=== PATIENT | female | born 1990 | race Two or more races ===

== ENCOUNTER 2020-01-02 21:12 | Emergency (ER) | payer MEDICAID, OTHER ==
[~2020-01-02] VITALS: Ht 157.5 cm; Wt 117.9 kg
[2020-01-03 03:22] VITALS: BP 122/79
== END 2020-01-03 04:40 | disposition home or self-care (01) ==
LOC: ER 21:12
DX: U07.1 COVID-19 (principal); J18.9 Pneumonia, unspecified organism
CPT/HCPCS: 36415; 71045; 87426

== ENCOUNTER 2020-08-09 19:36 | Emergency (ER) | payer MEDICAID ==
[~2020-08-09] VITALS: Ht 157.5 cm; Wt 117.9 kg
[2020-08-09 20:50] LABS: Basophils # (auto) 0 10 ^3/uL (0-0.2); Eosinophils # (auto) 0.1 10 ^3/uL (0-0.8); Eosinophils % (auto) 1.7 % (0.0-7.0); Hemoglobin 11.2 g/dL (12.2-16.2); Monocytes # (auto) 0.2 10 ^3/uL (0-1.3)
[2020-08-09 20:52] LABS: Basophils % (auto) 0.7 % (0.0-2.0); Hematocrit 33.7 % (36.0-46.0); Lymphocytes # (auto) 2.6 10 ^3/uL (0.4-5.4); Lymphocytes % (auto) 43.1 % (10.0-50.0); Mean Corpuscular Hgb Conc. 33.3 g/dL (32.0-36.0); Mean Corpuscular Volume 69.2 fL (80.0-100.0); Neutrophils % (auto) 50.5 % (37.0-80.0); Nucleated Red Blood Cells % 0.1 %; Platelet Count (auto) 151 10^3/uL (140-450); Red Blood Cells 4.87 10^6/uL (4.0-5.20); Red Cell Distribution Width 16.5 % (11.8-14.3)
[2020-08-09 21:04] LABS: Albumin 3.2 g/dL (3.4-5.0); BUN/Creatinine Ratio 16.7; Calcium 7.9 mg/dL (8.5-10.1); Potassium 3.6 mmol/L (3.5-5.1)
[2020-08-09 21:07] LABS: Bilirubin, Total 0.2 mg/dL (0.2-1.0); Total Protein 7.7 g/dL (6.4-8.2)
[2020-08-10 03:20] LABS: Urine Bacteria FEW /hpf (None Seen); Urine Blood 1+ /uL (Negative); Urine Mucus FEW (None Seen); Urine Specific Gravity 1.026 (1.001-1.035); Urine WBC 43 /hpf (0 - 5)
[2020-08-10 05:15] VITALS: BP 141/89
== END 2020-08-10 05:21 | disposition home or self-care (01) ==
LOC: ER 19:38
DX: R60.0 Localized edema (principal); M79.605 Pain in left leg; M79.604 Pain in right leg; Z88.2 Allergy status to sulfonamides
CPT/HCPCS: 36415; 71045; 80053; 81001; 81025; 83880; 85025; 93970

== ENCOUNTER 2023-09-26 16:18 | Emergency (ER) | payer MEDICAID, OTHER ==
[~2023-09-26] VITALS: Ht 157.5 cm; Wt 120.8 kg
[2023-09-26] MEDS: KETOROLAC TROMETH 60MG/2ML VIAL IM ONE (16:40)
[2023-09-26] MEDS ORDERED: IBUP-1456 PO (17:29)
[2023-09-26] MEDS ORDERED: METH-1182 PO (17:29)
[2023-09-26 17:56] VITALS: BP 131/77; PULSE 76; RESP 18; TEMP 98.2; O2SAT 96
== END 2023-09-26 17:56 | disposition home or self-care (01) ==
LOC: EEVIPCON 16:18 → ER 16:18
DX: S39.012A Strain of muscle, fascia and tendon of lower back, initial encounter (principal); Z88.2 Allergy status to sulfonamides; Z79.899 Other long term (current) drug therapy; X50.0XXA Overexertion from strenuous movement or load, initial encounter; Y93.89 Activity, other specified; Y92.89 Other specified places as the place of occurrence of the external cause; Y99.0 Civilian activity done for income or pay
CPT/HCPCS: 72100; 96372; 99283; J1885

== ENCOUNTER 2023-10-27 20:11 | Inpatient (IN) | payer MEDICAID, OTHER ==
[~2023-10-27] VITALS: Ht 157.5 cm; Wt 122.3 kg
[~2023-10-27 20:11] MED LIST: IBUP-1456 PO; METH-1182 PO
[2023-10-27 21:55] LABS: Basophils # (auto) 0.1 10 ^3/uL (0-0.2); Basophils % (auto) 1.2 % (0.0-2.0); Eosinophils # (auto) 0.2 10 ^3/uL (0-0.8); Eosinophils % (auto) 2.7 % (0.0-7.0); Hematocrit 31.8 % (36.0-46.0); Hemoglobin 10.1 g/dL (12.2-16.2); Lymphocytes # (auto) 1.9 10 ^3/uL (0.4-5.4); Lymphocytes % (auto) 31.4 % (10.0-50.0); Mean Corpuscular Hemoglobin 20.7 pg (28.0-32.0); Mean Corpuscular Hgb Conc. 31.8 g/dL (32.0-36.0); Mean Corpuscular Volume 65.1 fL (80.0-100.0); Monocytes # (auto) 0.3 10 ^3/uL (0-1.3); Monocytes % (auto) 4.9 % (0.0-12.0); Neutrophils # (auto) 3.6 10 ^3/uL (1.6-8.6); Neutrophils % (auto) 59.8 % (37.0-80.0); Nucleated Red Blood Cells % 0.1 %; Platelet Count (auto) 196 10^3/uL (140-450); Red Blood Cells 4.89 10^6/uL (4.0-5.20); Red Cell Distribution Width 17.2 % (11.8-14.3); White Blood Cell 6.1 10^3/uL (4.4-10.8)
[2023-10-27] MEDS: IPRATROPIUM BROM 0.5 MG/2.5ML INH SOL NEB ONE (22:01)
[2023-10-27] MEDS: ALBUTEROL SULF 2.5 MG/0.5ML(0.5%) NEB SOLN NEB ONE (22:01)
[2023-10-27] MEDS ORDERED: ONDANSETRON HCL 4 MG/2 ML VIAL IV PRN (22:30)
[2023-10-27] MEDS ORDERED: ACETAMINOPHEN 325 MG TAB PO PRN (22:30)
[2023-10-27] MEDS ORDERED: TEMAZEPAM 15 MG CAP PO PRN (22:30)
[2023-10-27] MEDS ORDERED: ALBUTEROL SULF 2.5 MG/0.5ML(0.5%) NEB SOLN NEB PRN (22:30)
[2023-10-27 22:33] LABS: Chloride 105 mmol/L (98-107); Potassium 3.3 mmol/L (3.5-5.1); Sodium 137 mmol/L (136-145)
[2023-10-27 22:34] LABS: Anion Gap 6 (5-15); Carbon Dioxide 26 mmol/L (20-30)
[2023-10-27 22:35] LABS: Calcium 8.9 mg/dL (8.7-10.4)
[2023-10-27 22:39] LABS: BUN/Creatinine Ratio 8.2 (10.0-20.0); Blood Urea Nitrogen 5 mg/dL (9-23); Glucose 96 mg/dL (74-106)
[2023-10-28] VITALS (15 sets, daily range): BP systolic 118–135; BP diastolic 71–84; PULSE 20–90; RESP 16–23; TEMP 97.5–98.4; O2SAT 94–100
[2023-10-28 00:16] LABS: Rapid Influenza A Negative (Negative); Rapid Influenza B Negative (Negative)
[2023-10-28 00:17] LABS: COVID19 ANTIGEN SOFIA FIA NEGATIVE (NEGATIVE)
[2023-10-28] MEDS: methylPREDNISolone SOD SUCC 125 MG/2 ML VL IV ONE (01:32)
[2023-10-28] MEDS: cefTRIAXone 1GM/50ML D5W 50 ML IV ONE ×2 (01:32→12:15)
[2023-10-28] MEDS ORDERED: DOCUSATE SOD 100 MG CAP PO PRN (02:00)
[2023-10-28] MEDS ORDERED: AZITHROMYCIN 500MG/ 250ML 250 ML IV SCH ×2 (02:00→10:00)
[2023-10-28] MEDS ORDERED: IPRATROPIUM BROM 0.5 MG/2.5ML INH SOL NEB SCH (02:00)
[2023-10-28] MEDS ORDERED: HYDROmorphone HCL 2 MG/ML VL/or syr IV PRN (02:00)
[2023-10-28] MEDS ORDERED: ONDANSETRON HCL 4 MG/2 ML VIAL IV PRN (02:00)
[2023-10-28] MEDS ORDERED: HYDROcodone-ACET 5/325MG TAB PO PRN (02:00)
[2023-10-28] MEDS ORDERED: methylPREDNISolone SOD SUCC 125 MG/2 ML VL IV SCH (02:00)
[2023-10-28] MEDS ORDERED: cefTRIAXone 1GM/50ML D5W 50 ML IV SCH ×2 (02:00→09:00)
[2023-10-28] MEDS: AZITHROMYCIN 500MG/ 250ML 250 ML IV ONE ×2 (02:09→12:15)
[2023-10-28] MEDS: POTASSIUM EFFERVESENT TAB 25 MEQ PO ONE (02:16)
[2023-10-28] MEDS: ALBUTEROL SULF 2.5 MG/0.5ML(0.5%) NEB SOLN NEB SCH ×2 (02:23→16:49)
[2023-10-28] MEDS: LACTATED RINGER'S 1,000 ML IV ONE (03:14)
[2023-10-28 04:22] LABS: Alanine Aminotransferase 15 U/L (7-40); Albumin 4.3 g/dL (3.2-4.8); Alkaline Phosphatase 93 U/L (46-116); Anion Gap 7 (5-15); Aspartate Aminotransferase 16 U/L (13-40); BUN/Creatinine Ratio 7.9 (10.0-20.0); Bilirubin, Total 0.3 mg/dL (0.2-1.0); Blood Urea Nitrogen 5 mg/dL (9-23); Calcium 8.8 mg/dL (8.7-10.4); Carbon Dioxide 26 mmol/L (20-30); Chloride 104 mmol/L (98-107); Glucose 152 mg/dL (74-106); Potassium 3.5 mmol/L (3.5-5.1); Sodium 137 mmol/L (136-145); Total Protein 7.8 g/dL (5.7-8.2)
[2023-10-28 04:25] LABS: Basophils # (auto) 0 10 ^3/uL (0-0.2); Eosinophils # (auto) 0.1 10 ^3/uL (0-0.8); Hemoglobin 9.5 g/dL (12.2-16.2); Lymphocytes # (auto) 1.1 10 ^3/uL (0.4-5.4); Monocytes # (auto) 0.2 10 ^3/uL (0-1.3); White Blood Cell 6.4 10^3/uL (4.4-10.8)
[2023-10-28 04:28] LABS: Basophils % (auto) 0.6 % (0.0-2.0); Eosinophils % (auto) 1.2 % (0.0-7.0); Hematocrit 29.3 % (36.0-46.0); Mean Corpuscular Hgb Conc. 32.4 g/dL (32.0-36.0); Mean Corpuscular Volume 64.8 fL (80.0-100.0); Monocytes % (auto) 2.7 % (0.0-12.0); Neutrophils % (auto) 78.5 % (37.0-80.0); Nucleated Red Blood Cells % 0.1 %; Platelet Count (auto) 187 10^3/uL (140-450); Red Blood Cells 4.52 10^6/uL (4.0-5.20); Red Cell Distribution Width 17.2 % (11.8-14.3)
[2023-10-28] MEDS: SODIUM CHLOR 0.9% PF (SALINE LOCK) 10ML VIAL/SYR IV SCH (06:04)
[2023-10-28] MEDS: PANTOPRAZOLE 40 MG/10 ML VIAL INJ IV SCH (09:22)
[2023-10-28] MEDS: ENOXAPARIN SOD 40 MG/0.4 ML SYRINGE SC SCH (09:23)
[2023-10-28] MEDS: methylPREDNISolone SOD SUCC 125 MG/2 ML VL IV SCH (09:23)
[2023-10-28] MEDS ORDERED: methylPREDNISolone SOD SUCC 40 MG/ML VL IV SCH (10:00)
[2023-10-28] MEDS: IPRATROPIUM BROM 0.5 MG/2.5ML INH SOL NEB SCH (16:49)
[2023-10-28] MEDS: ACETAMINOPHEN 325 MG TAB PO PRN (23:29)
[2023-10-29] VITALS (14 sets, daily range): BP systolic 105–132; BP diastolic 63–91; PULSE 68–115; RESP 18–21; TEMP 97.4–98.2; O2SAT 93–100
[2023-10-29 08:08] LABS: Basophils # (auto) 0 10 ^3/uL (0-0.2); Eosinophils # (auto) 0 10 ^3/uL (0-0.8); Eosinophils % (auto) 0.2 % (0.0-7.0); Hematocrit 30.2 % (36.0-46.0); Hemoglobin 9.6 g/dL (12.2-16.2); Lymphocytes # (auto) 1.1 10 ^3/uL (0.4-5.4); Mean Corpuscular Volume 65.4 fL (80.0-100.0); Monocytes # (auto) 0.1 10 ^3/uL (0-1.3); Neutrophils # (auto) 7.9 10 ^3/uL (1.6-8.6); White Blood Cell 9.2 10^3/uL (4.4-10.8)
[2023-10-29 08:10] LABS: Basophils % (auto) 0.1 % (0.0-2.0); Lymphocytes % (auto) 12.4 % (10.0-50.0); Mean Corpuscular Hemoglobin 20.7 pg (28.0-32.0); Mean Corpuscular Hgb Conc. 31.7 g/dL (32.0-36.0); Monocytes % (auto) 1.4 % (0.0-12.0); Neutrophils % (auto) 85.9 % (37.0-80.0); Nucleated Red Blood Cells % 0.1 %; Platelet Count (auto) 217 10^3/uL (140-450); Red Blood Cells 4.63 10^6/uL (4.0-5.20)
[2023-10-29 08:44] LABS: Alanine Aminotransferase 20 U/L (7-40); Alkaline Phosphatase 89 U/L (46-116); Anion Gap 6 (5-15); BUN/Creatinine Ratio 9.6 (10.0-20.0); Blood Urea Nitrogen 5 mg/dL (9-23); Calcium 9.4 mg/dL (8.7-10.4); Carbon Dioxide 26 mmol/L (20-30); Chloride 106 mmol/L (98-107); Glucose 154 mg/dL (74-106); Potassium 3.8 mmol/L (3.5-5.1); Sodium 138 mmol/L (136-145)
[2023-10-29 08:46] LABS: Albumin 4.1 g/dL (3.2-4.8); Aspartate Aminotransferase 19 U/L (13-40); Bilirubin, Total 0.3 mg/dL (0.2-1.0); Total Protein 7.6 g/dL (5.7-8.2)
[2023-10-29] MEDS: AZITHROMYCIN 500MG/ 250ML 250 ML IV SCH (09:02)
[2023-10-29] MEDS: cefTRIAXone 1GM/50ML D5W 50 ML IV SCH (09:03)
[2023-10-29 09:19] LABS: Platelet Estimate Adequate
[2023-10-29 09:20] LABS: Hypochromia Slight
[2023-10-29] MEDS: guaiFENesin-DM 100/10mg/5ml SYR PO PRN (17:40)
[2023-10-30] VITALS (17 sets, daily range): BP systolic 102–142; BP diastolic 54–83; PULSE 70–93; RESP 16–20; TEMP 97.4–98.6; O2SAT 93–100
[2023-10-30 06:29] LABS: Basophils # (auto) 0 10 ^3/uL (0-0.2); Basophils % (auto) 0.1 % (0.0-2.0); Eosinophils # (auto) 0 10 ^3/uL (0-0.8); Hemoglobin 8.9 g/dL (12.2-16.2); Lymphocytes # (auto) 1.1 10 ^3/uL (0.4-5.4); Monocytes # (auto) 0.3 10 ^3/uL (0-1.3); Neutrophils # (auto) 10.6 10 ^3/uL (1.6-8.6); Nucleated Red Blood Cells % 0.1 %
[2023-10-30 06:31] LABS: Alanine Aminotransferase 17 U/L (7-40); Albumin 3.9 g/dL (3.2-4.8); Alkaline Phosphatase 79 U/L (46-116); Anion Gap 6 (5-15); Aspartate Aminotransferase 10 U/L (13-40); BUN/Creatinine Ratio 21.1 (10.0-20.0); Bilirubin, Total 0.2 mg/dL (0.2-1.0); Blood Urea Nitrogen 12 mg/dL (9-23); Calcium 8.9 mg/dL (8.7-10.4); Carbon Dioxide 24 mmol/L (20-30); Chloride 108 mmol/L (98-107); Glucose 127 mg/dL (74-106); Potassium 4.2 mmol/L (3.5-5.1); Sodium 138 mmol/L (136-145); Total Protein 6.6 g/dL (5.7-8.2)
[2023-10-30 06:32] LABS: Hematocrit 27.7 % (36.0-46.0); Lymphocytes % (auto) 9.4 % (10.0-50.0); Mean Corpuscular Hemoglobin 21.2 pg (28.0-32.0); Mean Corpuscular Hgb Conc. 32.3 g/dL (32.0-36.0); Mean Corpuscular Volume 65.7 fL (80.0-100.0); Monocytes % (auto) 2.1 % (0.0-12.0); Neutrophils % (auto) 88.4 % (37.0-80.0); Platelet Count (auto) 225 10^3/uL (140-450); Red Blood Cells 4.21 10^6/uL (4.0-5.20)
[2023-10-31] VITALS (12 sets, daily range): BP systolic 119–130; BP diastolic 75–87; PULSE 55–88; RESP 14–19; TEMP 97.2–98.5; O2SAT 92–100
[2023-10-31 08:18] LABS: Basophils # (auto) 0 10 ^3/uL (0-0.2); Basophils % (auto) 0.1 % (0.0-2.0); Eosinophils # (auto) 0 10 ^3/uL (0-0.8); Hemoglobin 9.7 g/dL (12.2-16.2)
[2023-10-31] MEDS ORDERED: IPRIH IN (08:20)
[2023-10-31] MEDS ORDERED: METH4PAK PO (08:20)
[2023-10-31] MEDS ORDERED: ALBUAER3 IN (08:20)
[2023-10-31] MEDS ORDERED: AZIT500T66 PO (08:20)
[2023-10-31 08:24] LABS: Hematocrit 30.3 % (36.0-46.0); Lymphocytes # (auto) 1.3 10 ^3/uL (0.4-5.4); Lymphocytes % (auto) 15.6 % (10.0-50.0); Mean Corpuscular Hemoglobin 21.2 pg (28.0-32.0); Mean Corpuscular Hgb Conc. 32.1 g/dL (32.0-36.0); Mean Corpuscular Volume 66.1 fL (80.0-100.0); Monocytes # (auto) 0.3 10 ^3/uL (0-1.3); Monocytes % (auto) 3.2 % (0.0-12.0); Neutrophils % (auto) 81.1 % (37.0-80.0); Platelet Count (auto) 216 10^3/uL (140-450); Red Blood Cells 4.59 10^6/uL (4.0-5.20); Red Cell Distribution Width 17.2 % (11.8-14.3); White Blood Cell 8.7 10^3/uL (4.4-10.8)
[2023-10-31 08:33] LABS: Alanine Aminotransferase 17 U/L (7-40); Albumin 3.9 g/dL (3.2-4.8); Alkaline Phosphatase 73 U/L (46-116); Anion Gap 5 (5-15); Aspartate Aminotransferase 8 U/L (13-40); BUN/Creatinine Ratio 17.5 (10.0-20.0); Bilirubin, Total 0.3 mg/dL (0.2-1.0); Blood Urea Nitrogen 10 mg/dL (9-23); Calcium 8.9 mg/dL (8.7-10.4); Carbon Dioxide 28 mmol/L (20-30); Chloride 106 mmol/L (98-107); Glucose 113 mg/dL (74-106); Potassium 4.2 mmol/L (3.5-5.1); Sodium 139 mmol/L (136-145); Total Protein 6.9 g/dL (5.7-8.2)
== END 2023-10-31 16:04 | disposition home or self-care (01) | DRG 137 ==
LOC: ER 20:11 → EEVIPCON 20:11 → WEST WING 10-28 01:48 → OVERFLOW 10-28 01:48 → WEST WING 10-28 06:13 → CENTRAL 10-30 06:00
PROVIDERS: ADMIT Internal Medicine; ATTEND Family Medicine
DX: J15.69 Pneumonia due to other Gram-negative bacteria (principal); J96.01 Acute respiratory failure with hypoxia; E66.01 Morbid (severe) obesity due to excess calories; Z20.822 Contact with and (suspected) exposure to COVID-19; J45.909 Unspecified asthma, uncomplicated; Z68.42 Body mass index [BMI] 45.0-49.9, adult; Z82.49 Family history of ischemic heart disease and other diseases of the circulatory system; Z83.3 Family history of diabetes mellitus; Z79.899 Other long term (current) drug therapy; J15.9 Unspecified bacterial pneumonia
CPT/HCPCS: 36415; 71045; 80048; 80053; 83605; 84484; 85025; 87040; 87426; 87804; 94640; G0378; J2470

== ENCOUNTER 2023-11-11 11:17 | Inpatient (IN) | payer MEDICAID ==
[~2023-11-11] VITALS: Ht 157.5 cm; Wt 123.5 kg
[~2023-11-11 11:17] MED LIST changes: +ALBUAER3 IN; +AZIT500T66 PO; +IPRIH IN; +METH4PAK PO
[2023-11-11] MEDS: IOHEXOL 350 MG/ML 100ML IJ ONE (12:33)
[2023-11-11 13:11] LABS: Basophils # (auto) 0 10 ^3/uL (0-0.2); Eosinophils # (auto) 0 10 ^3/uL (0-0.8); Eosinophils % (auto) 0.6 % (0.0-7.0); Hemoglobin 9.7 g/dL (12.2-16.2); Monocytes # (auto) 0.2 10 ^3/uL (0-1.3); Neutrophils # (auto) 2.8 10 ^3/uL (1.6-8.6); White Blood Cell 4.1 10^3/uL (4.4-10.8)
[2023-11-11 13:17] LABS: Basophils % (auto) 0.8 % (0.0-2.0); Hematocrit 30.2 % (36.0-46.0); Lymphocytes % (auto) 23.9 % (10.0-50.0); Mean Corpuscular Hemoglobin 21.2 pg (28.0-32.0); Mean Corpuscular Volume 66.2 fL (80.0-100.0); Monocytes % (auto) 5.4 % (0.0-12.0); Neutrophils % (auto) 69.3 % (37.0-80.0); Platelet Count (auto) 124 10^3/uL (140-450); Red Blood Cells 4.56 10^6/uL (4.0-5.20); Red Cell Distribution Width 17.5 % (11.8-14.3)
[2023-11-11 13:22] LABS: Chloride 109 mmol/L (98-107); Potassium 3.9 mmol/L (3.5-5.1); Sodium 138 mmol/L (136-145)
[2023-11-11 13:23] LABS: Anion Gap 6 (5-15); Calcium 8.6 mg/dL (8.7-10.4); Carbon Dioxide 23 mmol/L (20-30)
[2023-11-11 13:28] LABS: BUN/Creatinine Ratio 12.5 (10.0-20.0); Blood Urea Nitrogen 7 mg/dL (9-23); Glucose 101 mg/dL (74-106)
[2023-11-11 14:01] LABS: COVID19 ANTIGEN SOFIA FIA NEGATIVE (NEGATIVE); Rapid Influenza A Negative (Negative); Rapid Influenza B Negative (Negative)
[2023-11-11 15:11] LABS: Urine Bacteria FEW /hpf (None Seen); Urine Blood Negative /uL (Negative); Urine Clarity Clear (Clear); Urine Color Yellow (Yellow); Urine Mucus FEW (None Seen); Urine Protein, UAD 1+ (Negative); Urine Urobilinogen 2 mg/dL (Negative); Urine WBC 5 /hpf (0 - 5); Urine pH 8.5 (5.0-9.0)
[2023-11-11 15:19] LABS: Urine Specific Gravity > 1.050 (1.001-1.035)
[2023-11-11 18:33] VITALS: RESP 14; O2SAT 98
[2023-11-11] MEDS ORDERED: IPRATROPIUM BROM 0.5 MG/2.5ML INH SOL NEB PRN (22:00)
[2023-11-11] MEDS ORDERED: ALBUTEROL SULF 2.5 MG/0.5ML(0.5%) NEB SOLN NEB PRN (22:00)
[2023-11-11] MEDS ORDERED: MORPHINE SULFATE INJ 2 MG/ml SYRG IV PRN (22:00)
[2023-11-11] MEDS ORDERED: HYDROcodone-ACET 5/325MG TAB PO PRN (22:00)
[2023-11-11] MEDS ORDERED: NITROGLYCERIN 0.4 MG SL TAB SL PRN (22:00)
[2023-11-11] MEDS ORDERED: DOCUSATE SOD 100 MG CAP PO PRN (22:00)
[2023-11-11] MEDS ORDERED: ONDANSETRON HCL 4 MG/2 ML VIAL IV PRN (22:00)
[2023-11-11] MEDS: ACETAMINOPHEN 325 MG TAB PO PRN (22:30)
[2023-11-11] MEDS: ASCORBIC ACID 500 MG TAB PO SCH (22:30)
[2023-11-11] MEDS: SODIUM CHLOR 0.9% PF (SALINE LOCK) 10ML VIAL/SYR IV SCH (22:30)
[2023-11-11] MEDS: cefTRIAXone 1GM/50ML D5W 50 ML IV ONE (23:08)
[2023-11-12] VITALS (10 sets, daily range): BP systolic 108–128; BP diastolic 60–80; PULSE 60–76; RESP 16–19; TEMP 97.7–98.2; O2SAT 95–99
[2023-11-12 06:03] LABS: Basophils # (auto) 0 10 ^3/uL (0-0.2); Eosinophils # (auto) 0.1 10 ^3/uL (0-0.8); Eosinophils % (auto) 2.3 % (0.0-7.0); Hemoglobin 9.7 g/dL (12.2-16.2); Lymphocytes # (auto) 1.6 10 ^3/uL (0.4-5.4); Monocytes # (auto) 0.3 10 ^3/uL (0-1.3); Nucleated Red Blood Cells % 0.1 %
[2023-11-12 06:07] LABS: Basophils % (auto) 0.9 % (0.0-2.0); Hematocrit 30.7 % (36.0-46.0); Lymphocytes % (auto) 38.9 % (10.0-50.0); Mean Corpuscular Hemoglobin 21.2 pg (28.0-32.0); Mean Corpuscular Hgb Conc. 31.6 g/dL (32.0-36.0); Mean Corpuscular Volume 67.1 fL (80.0-100.0); Monocytes % (auto) 7.8 % (0.0-12.0); Neutrophils % (auto) 50.1 % (37.0-80.0); Platelet Count (auto) 124 10^3/uL (140-450); Red Blood Cells 4.57 10^6/uL (4.0-5.20); Red Cell Distribution Width 18.1 % (11.8-14.3)
[2023-11-12 06:28] LABS: Alanine Aminotransferase 21 U/L (7-40); Alkaline Phosphatase 67 U/L (46-116); Anion Gap 6 (5-15); BUN/Creatinine Ratio 12.5 (10.0-20.0); Blood Urea Nitrogen 6 mg/dL (9-23); Calcium 8.5 mg/dL (8.7-10.4); Carbon Dioxide 23 mmol/L (20-30); Chloride 109 mmol/L (98-107); Glucose 94 mg/dL (74-106); Sodium 138 mmol/L (136-145)
[2023-11-12 06:30] LABS: Albumin 3.8 g/dL (3.2-4.8); Aspartate Aminotransferase 20 U/L (13-40); Bilirubin, Total 0.4 mg/dL (0.2-1.0); Total Protein 6.6 g/dL (5.7-8.2)
[2023-11-12] MEDS ORDERED: ENOXAPARIN SOD 40 MG/0.4 ML SYRINGE SC ONE (08:15)
[2023-11-12] MEDS: MULTIPLE VITAMIN TAB PO SCH (09:50)
[2023-11-12] MEDS: cefTRIAXone 1GM/50ML D5W 50 ML IV SCH (09:50)
[2023-11-12] MEDS: ENOXAPARIN SOD 40 MG/0.4 ML SYRINGE SC ONE (09:51)
[2023-11-12] MEDS ORDERED: ASCO500T11 PO (11:00)
[2023-11-12] MEDS ORDERED: NITR-52 PO (11:00)
[2023-11-12] MEDS ORDERED: MULTTAB99 PO (11:00)
[2023-11-12] MEDS ORDERED: ACET-1882 PO (11:00)
[2023-11-12] MEDS ORDERED: PRED20TA2 PO (11:27)
[2023-11-12] MEDS ORDERED: predniSONE 20 MG TAB PO ONE (11:30)
[2023-11-13] MEDS ORDERED: predniSONE 20 MG TAB PO SCH (10:00)
== END 2023-11-12 13:38 | disposition home or self-care (01) | DRG 140 ==
LOC: ER 11:17 → EEVIPCON 11:17 → TELE 22:00 → TELE-WESTW 23:59
PROVIDERS: ADMIT Internal Medicine Pulmonary Disease; ATTEND Internal Medicine Pulmonary Disease
DX: J44.1 Chronic obstructive pulmonary disease with (acute) exacerbation (principal); J45.901 Unspecified asthma with (acute) exacerbation; N39.0 Urinary tract infection, site not specified; E66.01 Morbid (severe) obesity due to excess calories; Z20.822 Contact with and (suspected) exposure to COVID-19; Z82.49 Family history of ischemic heart disease and other diseases of the circulatory system; Z68.42 Body mass index [BMI] 45.0-49.9, adult; Z88.2 Allergy status to sulfonamides
CPT/HCPCS: 36415; 71275; 80048; 80053; 81001; 84484; 85025; 85379; 87081; 87086; 87426; 87804; 93005; 93970; G0378

== ENCOUNTER → 2023-12-31 | Outpatient (CLI) | payer MEDICAID ==
[~2023-12-31] MED LIST changes: +ACET-1882 PO; +ASCO500T11 PO; -AZIT500T66 PO; -METH4PAK PO; +MULTTAB99 PO; +NITR-52 PO; +PRED20TA2 PO
--- NOTE | 2024-01-06 14:30 | DVHNC2 ---
Procedure - Pulmonary function test interpretation: December 31, 2023 1. No obstructive or restrictive ventilatory defect. 2. No significant bronchodilator response. 3. TLC is within normal limits, 83% of predicted, 4.71 L. 4. Mild reduction in diffusion capacity, not corrected for patient's hemoglobin. ELIZ COLLIER MD Jan 06, 2024 14:30
== END | disposition home or self-care (01) ==
LOC: RT 09:26
PROVIDERS: ATTEND Internal Medicine Pulmonary Disease
DX: J45.909 Unspecified asthma, uncomplicated (principal); R06.00 Dyspnea, unspecified; R05.9 Cough, unspecified; F17.200 Nicotine dependence, unspecified, uncomplicated
CPT/HCPCS: 94060; 94727; 94729

== ENCOUNTER 2024-09-06 22:59 | Emergency (ER) | payer MEDICAID ==
[~2024-09-06] VITALS: Ht 157.5 cm; Wt 102.8 kg
[2024-09-07 00:26] LABS: Hematocrit 33.1 % (36.0-46.0); Hemoglobin 10.5 g/dL (12.2-16.2); Mean Corpuscular Hemoglobin 19.4 pg (28.0-32.0); Mean Corpuscular Volume 61.2 fL (80.0-100.0); Nucleated Red Blood Cells % 0.1 %
[2024-09-07] MEDS: ONDANSETRON ODT 4 MG TAB PO ONE (00:36)
[2024-09-07 00:37] LABS: Alanine Aminotransferase 16 U/L (7-40); Albumin 4.8 g/dL (3.2-4.8); Alkaline Phosphatase 67 U/L (46-116); Anion Gap 10 (5-15); BUN/Creatinine Ratio 14.8 (10.0-20.0); Blood Urea Nitrogen 9 mg/dL (9-23); Calcium 9.0 mg/dL (8.7-10.4); Carbon Dioxide 23 mmol/L (20-31); Chloride 106 mmol/L (98-107); Glucose 99 mg/dL (74-106); Lipase 36 U/L (12-53); Sodium 139 mmol/L (136-145); Total Protein 7.8 g/dL (5.7-8.2)
[2024-09-07 00:38] VITALS: TEMP 98.8
[2024-09-07 00:38] LABS: Bilirubin, Total 0.5 mg/dL (0.2-1.0)
[2024-09-07] MEDS: LIDOCAINE VISCOUS 2% 15ML UD PO ONE (00:41)
[2024-09-07] MEDS: MAALOX PLUS or MAALOX 30 ML PO ONE (00:41)
[2024-09-07 01:06] LABS: Potassium 3.2 mmol/L (3.5-5.1)
[2024-09-07 01:12] LABS: Urine Protein, UAD TRACE (Negative)
--- NOTE | 2024-09-07 02:18 | ED.PDOC ---
History of Present Illness HPI Comments 34-year-old female presents with spouse for chief complaint of abdominal pain, nausea, vomiting, diarrhea, excessive burping, and generalized weakness. Patient endorses on progressively worsening symptoms following initial, unprovoked onset at around 9:20 p.m., this evening. Pain is localized in her epigastric area and is constant, nonradiating, feels like contraction, and is a 7/10 in severity.Significant history for UTIs in status post fallopian tube removal. Pain is worse with vomiting. Attempted to take Pepto-Bismol prior to arrival to on vomiting, immediately, afterwards. Last meal was Mongolian, but patient reports on her other family members, who consumed the same food, on b eing asymptomatic. No recent injuries, known sick contact, travel, or further relevant history endorsed. Patient denies having any bloody vomitus or stools, constipation, urinary symptoms, or further associated symptoms at this time. Chief Complaint: Abdominal Pain Time Seen by MD: 23:50 Reviewed Notes: Nurses Notes, Medications, Allergies Allergies: Coded Allergies: Sulfa Antibiotics (Verified Allergy, Unknown, 08/09/20) Home Meds Active Scripts Potassium Chloride (POTASSIUM CHLORIDE CR) 10 Meq Tb, 1 TAB PO DAILY for 7 Days, #7 TAB 5 Refills Prov:FAVIO SIBLEY MD 09/07/24 Ondansetron Odt 4MG Tab (ZOFRAN PO) 4 Mg Tb, 4 MG PO TIDPRN PRN for 3 Days, #9 TAB ODT TAB-DISSOLVE IN MOUTH, THEN SWALLOW Prov:FAVIO SIBLEY MD 09/07/24 Prednisone (Prednisone) 20 Mg Tab, 40 MG PO DAILY for 5 Days, #10 MG Prov:PREMA RIDDLE 11/12/23 Nitrofurantoin (Nitrofurantoin) 100 Mg Cap, 1 CAP PO BID for 5 Days, #10 CAP Prov:PREMA RIDDLE 11/12/23 Multiple Vitamin (Mvi Tab) 1 Tab Tb, 1 TAB PO DAILY for 30 Days, #30 TAB Prov:PREMA RIDDLE 11/12/23 Ascorbic Acid (VITAMIN C TABLET) 500 Mg Tb, 500 MG PO BID for 30 Days, #60 TAB Prov:PREMA RIDDLE 11/12/23 Acetaminophen (Acetaminophen) 325 Mg Tab, 650 MG PO Q6HP PRN for 10 Days, #80 TAB Prov:PREMA RIDDLE RESIDENT 11/12/23 Ipratropium [place] Hfa (Atrovent Hfa) 17 Mcg Aer, 17 MCG IN Q4HR PRN, #1 AER Prov:KRIS PERALTA MD 10/31/23 Albuterol Sulfate (VENTOLIN MDI) 90 Mcg Ih, 90 MCG IN Q4HR PRN, #1 INH Prov:KRIS PERALTA MD 10/31/23 Methocarbamol (Methocarbamol) 750 Mg Tab, 750 MG PO BID, #20 TAB Prov:OLIVA STANFORD 09/26/23 Ibuprofen (Ibuprofen) 800 Mg Tab, 1 TAB PO TID, #30 TAB Prov:OLIVA STANFORD 09/26/23 Information Source: Patient Mode of Arrival: Ambulatory Severity: Moderate Timing: Hours Duration: Since onset Prehospital treatment: Other (See HPI) Review of Systems: REVIEW OF SYSTEMS: General: No fever, no chills, or fatigue HEENT: No sore throat, no earache, no congestion, no neck pain. Cardiac: No chest pain. No palpitations. Lungs: No shortness of breath, no cough. GI: Abdominal pain, nausea, vomiting, diarrhea, no constipation : No dysuria, frequency, or urgency. No hematuria. Musculoskeletal: No joint pain , no joint swelling, no extremity edema. Skin: No rash, no itching. Neuro: Generalized weakness, no headache, no dizziness Vital Signs Vital Signs Date Time Temp Pulse Resp B/P (MAP) Pulse Ox O2 Delivery O2 Flow Rate FiO2 09/07/24 03:00 80 14 123/75 (91) 100 09/07/24 00:41 Room Air* 0 21 09/07/24 00:38 98.8 98.8 Physical Exam PHYSICAL EXAM: General: Awake, alert and oriented. No acute distress. Skin: Skin in warm, dry and intact. Appropriate color for ethnicity. HEENT: The head is normocephalic and atraumatic. Conjunctivae are clear without exudates or hemorrhage. Sclera is non-icteric. EOM are intact. No signs of nystagmus. Eyelids are normal in appearance without swelling or lesions. Oral mu cosa is pink and moist Neck: The neck is supple with normal range of motion. No JVD. Cardiac: Heart rate and rhythm are normal. No murmurs, gallops, or rubs are auscultated. Respiratory: No signs of respiratory distress. Lung sounds are clear in all lobe s bilaterally without rales, rhonchi, or wheezes. Abdominal: Epigastric abdominal tenderness. Remaining abdomen is soft, non-t rosalinda without distention, guarding or rigidity. Bowel sounds are present and normoactive in all four quadrants. No CVA tenderness. Extremities: Upper and lower extremities are atraumatic in appearance without deformity or edema. Neurological: The patient is awake, alert and oriented to person, place, and time with normal speech. Speech is clear. There is no facial asymmetry. Psychiatric: Appropriate mood and affect. Good judgement and insight. Past Medical History PAST MEDICAL HISTORY: UTI'S Past Medical History (Other): Childhood asthma Pneumonia Morbid obesity Surgical History (Other): Fallopian tube removal [employer] History: Other (Fallopian tube removal) Family History Family History: Family hx of Cancer, Family hx of heart machelle, Family hx of HTN Social History Smoker: Non-Smoker Alcohol: Occasionally Drugs: Denies Drug Use Lives In: Home Was a procedure done? Was a procedure done?: No Differential Dx Considerations may include: Differential diagnoses considered include: Abdominal aortic aneurysm, MA, esophageal rupture, intestinal obstruction, mesenteric ischemia, perforated viscus or solid organ rupture, CHF with hepatomegaly, pneumonia, abscess, appendicitis, biliary disease, diverticulitis, gastritis, gastroenteritis, hepatitis, hernia, inflammatory bowel disease, pancreatitis, peptic ulcer disease, urinary tract infection, ureteral colic, constipation, GERD, irritable syndrome, abdominal wall pain, nonspecific abdominal pain, herpes zoster, nephrolithiasis. [ ]Also ruptured ectopic , ovarian torsion/cyst, tubo- ovarian abscess, PID, endometriosis, mittelschmerz. X-Ray, Labs, Meds, VS Vital Signs Date Time Temp Pulse Resp B/P (MAP) Pulse Ox O2 Delivery O2 Flow Rate FiO2 09/07/24 03:00 80 14 123/75 (91) 100 09/07/24 00:41 Room Air* 0 21 09/07/24 00:38 98.8 92 16 114/66 (82) 95 98.8 09/06/24 23:10 98.2 107 22 108/70 (83) 98 98.2 Lab Test 09/06/24 23:59 09/06/24 23:15 Range/Units White Blood Count 8.3 4.4-10.8 10^3/uL Red Blood Count 5.42 H 4.0-5.20 10^6/uL Hemoglobin 10.5 L 12.2-16.2 g/dL Hematocrit 33.1 L 36.0-46.0 % Mean Corpuscular Volume 61.2 L 80.0-100.0 fL Mean Corpuscular Hemoglobin 19.4 L 28.0-32.0 pg Mean Corpuscular Hemoglobin Concent 31.8 L 32.0-36.0 g/dL Red Cell Distribution Width 18.3 H 11.8-14.3 % Platelet Count 203 140-450 10^3/uL Mean Platelet Volume 9.0 6.9-10.8 fL Neutrophils (%) (Auto) 76.5 37.0-80.0 % Lymphocytes (%) (Auto) 18.2 10.0-50.0 % Monocytes (%) (Auto) 4.6 0.0-12.0 % Eosinophils (%) (Auto) 0.3 0.0-7.0 % Basophils (%) (Auto) 0.4 0.0-2.0 % Neutrophils # (Auto) 6.4 1.6-8.6 10 ^3/uL Lymphocytes # (Auto) 1.5 0.4-5.4 10 ^3/uL Monocytes # (Auto) 0.4 0-1.3 10 ^3/uL Eosinophils # (Auto) 0 0-0.8 10 ^3/uL Basophils # (Auto) 0 0-0.2 10 ^3/uL Nucleated Red Blood Cells 0.1 % Sodium Level 139 136-145 mmol/L Potassium Level 3.2 L 3.5-5.1 mmol/L Chloride Level 106 98-107 mmol/L Carbon Dioxide Level 23 20-31 mmol/L Anion Gap 10 5-15 Blood Urea Nitrogen 9 9-23 mg/dL Creatinine 0.61 0.550-1.02 mg/dL Glomerular Filtration Rate Calc 120 >90 mL/min BUN/Creatinine Ratio 14.8 10.0-20.0 Serum Glucose 99 74-106 mg/dL Lactic Acid Level 1.3 0.4-2.0 mmol/L Calcium Level 9.0 8.7-10.4 mg/dL Total Bilirubin 0.5 0.2-1.0 mg/dL Aspartate Amino Transferase (AST) 21 13-40 U/L Alanine Aminotransferase (ALT) 16 7-40 U/L Alkaline Phosphatase 67 46-116 U/L Total Protein 7.8 5.7-8.2 g/dL Albumin 4.8 3.2-4.8 g/dL Lipase 36 12-53 U/L Urine Color Yellow Yellow Urine Clarity Turbid H Clear Urine pH 6.5 5.0-9.0 Urine Specific [place] 1.026 1.001-1.035 Urine Protein Trace H Negative Urine Ketones Trace Negative Urine Blood Trace H Negative /uL Urine Nitrite Negative Negative Urine Bilirubin Negative Negative Urine Urobilinogen 2 H Negative mg/dL Urine Leukocyte Esterase 3+ Negative /uL Urine RBC 5 0 - 4 /hpf Urine Microscopic WBC 63 H 0-5 /HPF Urine Squamous Epithelial Cells Mod <5 /hpf Urine Renal Epithelial Cells 7 None Seen /hpf Urine Bacteria None seen None Seen /hpf Urine Mucus Few None Seen Urine Glucose Normal Normal mg/dL Urine Test Negative Negative Current Medications Medications (Trade) Dose Ordered Sig/Neli Route Start Time Stop Time Status Last Admin Ondansetron HCl (Zofran Po) 4 mg ONCE ONCE PO 09/07/24 00:00 09/07/24 00:01 DC 09/07/24 00:36 Al Hydrox/Mg Hydrox/Simethicone (Maalox Plus) 30 ml ONCE ONCE PO 09/07/24 00:00 09/07/24 00:01 DC 09/07/24 00:41 Lidocaine HCl (Xylocaine 2% Viscous) 10 ml ONCE ONCE PO 09/07/24 00:00 09/07/24 00:01 DC 09/07/24 00:41 Potassium Bicarbonate (Klor-Con/Ef) 50 meq ONCE ONCE PO 09/07/24 02:00 09/07/24 02:03 DC 09/07/24 02:24 Sodium Chloride 1,000 ml @ 1,000 mls/hr Q1H ONCE IV 09/07/24 02:00 09/07/24 02:59 DC 09/07/24 02:20 Time of 1ST Reevaluation: 00:20 Reevaluation 1ST: Unchanged Patient Education/Counseling: Treatment, Need For Follow Up Family Education/Counseling: Treatment, Need For Follow Up SEPSIS Sepsis Screen Date sepsis recognized/suspect: Sep 06, 2024 Time Sepsis recognized/suspect: 2309 Recent Procedure: No On Antibiotic Therapy: No Respiratory Rate >20: No Heart Rate >90: Yes Temp<36 C (96.8 F) or >38.3 C: No SBP <90 or MAP <65 mmHG: No New Acute Mental Status Change: No Is the patient on CPAP, BIPAP,: No Physician Orders Urine Bacterial Culture (09/07/24 02:01) Vital Signs Date Time Temp Pulse Resp B/P (MAP) Pulse Ox O2 Delivery O2 Flow Rate FiO2 09/07/24 03:00 80 14 123/75 (91) 100 09/07/24 00:41 Room Air* 0 21 09/07/24 00:38 98.8 92 16 114/66 (82) 95 98.8 09/06/24 23:10 98.2 107 22 108/70 (83) 98 98.2 Laboratory Tests Test 09/06/24 23:59 Lactic Acid Level 1.3 mmol/L (0.4-2.0) White Blood Count 8.3 10^3/uL (4.4-10.8) Medications Medications Dose Ordered Sig/Neli Route Start Time Stop Time Status Last Admin Dose Admin Al Hydrox/Mg Hydrox/Simethicone 30 ml ONCE ONCE PO 09/07/24 00:00 09/07/24 00:01 DC 09/07/24 00:41 Lidocaine HCl 10 ml ONCE ONCE PO 09/07/24 00:00 09/07/24 00:01 DC 09/07/24 00:41 Ondansetron HCl 4 mg ONCE ONCE PO 09/07/24 00:00 09/07/24 00:01 DC 09/07/24 00:36 Potassium Bicarbonate 50 meq ONCE ONCE PO 09/07/24 02:00 09/07/24 02:03 DC 09/07/24 02:24 Sodium Chloride 1,000 ml @ 1,000 mls/hr Q1H ONCE IV 09/07/24 02:00 09/07/24 02:59 DC 09/07/24 02:20 Departure 1 Departure Time of Disposition: 02:24 Impression: Primary Impression: Vomiting and diarrhea Additional Impressions: Abdominal pain Hypokalemia Anemia Disposition: 01 HOME / SELF CARE / HOMELESS Condition: Stable Additional Instructions: ED DISCHARGE INSTRUCTIONS Instructions: Please read all instructions provided in this packet carefully. Although you have been discharged from the Emergency Department, this does not mean that you have a "clean bill of health". No definitive diagnosis for your symptoms has been made today. It is possible that you are in the process of developing a serious illness. This is why you must return to the ED without fail if any new or worsening symptoms (especially if your symptoms include chest pain, trouble breathing, abdominal pain, fever, headache, confusion, trouble seeing, or trouble walking) It is also very important that you see a primary care provider (PCP) within the next 3-5 days to follow up. If you are unable to get an appointment, return to the ED for re-evaluation. Abdominal Pain: Care Instructions Overview Abdominal pain has many possible causes. Some aren't serious and get better on their own in a few days. Others need more testing and treatment. If your pain continues or gets worse, you need to be rechecked and may need more tests to find out what is wrong. You may need surgery to correct the problem. Don't ignore new symptoms, such as fever, nausea and vomiting, urination problems, pain that gets worse, and dizziness. These may be signs of a more serious problem. If you are not getting better, you may need more tests or treatment. The doctor has checked you carefully, but problems can develop later. If you notice any problems or new symptoms, get medical treatment right away. Follow-up care is a mello part of your treatment and safety. Be sure to make and go to all appointments, and call your doctor if you are having problems. It's also a good idea to know your test results and keep a list of the medicines you take. How can you care for yourself at home? Rest until you feel better. To prevent dehydration, drink plenty of fluids. Choose water and other clear liquids until you feel better. If you have kidney, heart, or liver disease and have to limit fluids, talk with your doctor before you increase the amount of fluids you drink. When you feel like eating, start with small amounts. Do not have alcohol, caffeine, or spicy, hot, or high-fat foods for a day or two. Avoid anti-inflammatory medicines such as aspirin, ibuprofen (Advil, Motrin), and naproxen (Aleve). These can cause stomach upset. Talk to your doctor if you take daily aspirin for another health problem. When should you call for help? Call 911 anytime you think you may need emergency care. For example, call if: You passed out (lost consciousness). You pass maroon or very bloody stools. You vomit blood or what looks like coffee grounds. You have severe belly pain. Call your doctor now or seek immediate medical care if: Your pain gets worse, especially if it becomes focused in one area of your belly. You have a new or higher fever. Your stools are black and look like tar, or they have streaks of blood. You have unexpected vaginal bleeding. You have symptoms of a urinary tract infection. These may include: Pain when you urinate. Urinating more often than usual. Blood in your urine. You are dizzy or lightheaded, or you feel like you may faint. Watch closely for changes in your health, and be sure to contact your doctor if: You are not getting better as expected. Credits for Abdominal Pain: Care Instructions Current as of: December 13, 2022 Author: Ivan [employer], [email or web address] Staff Clinical Review Board All [employer] education is reviewed by a team that includes physicians, nurses, advanced practitioners, registered dieticians, and other healthcare professionals. Nausea and Vomiting: Care Instructions Overview When you are nauseated, you may feel weak and sweaty and notice a lot of saliva in your mouth. Nausea often leads to vomiting. Most of the time you do not need to worry about nausea and vomiting, but they can be signs of other illnesses. Two common causes of nausea and vomiting are a stomach infection and food pois oning. Nausea and vomiting from a viral stomach infection will usually start to improve within 24 hours. Nausea and vomiting from food poisoning may last from 12 to 48 hours. The doctor has checked you carefully, but problems can develop later. If you not ice any problems or new symptoms, get medical treatment right away. Follow-up care is a mello part of your treatment and safety. Be sure to make and go to all appointments, and call your doctor if you are having problems. It's also a good idea to know your test results and keep a list of the medicines you take. How can you care for yourself at home? To prevent dehydration, drink plenty of fluids. Choose water and other clear liquids until you feel better. If you have kidney, heart, or liver disease and have to limit fluids, talk with your doctor before you increase the amount of fluids you drink. Rest in bed until you feel better. When you are able to eat, try clear soups, mild foods, and liquids until all symptoms are gone for 12 to 48 hours. Other good choices include dry toast, crackers, cooked cereal, and gelatin dessert, such as Jell-O. When should you call for help? Call 911 anytime you think you may need emergency care. For example, call if: You passed out (lost consciousness). Call your doctor now or seek immediate medical care if: You have symptoms of dehydration, such as: Dry eyes and a dry mouth. Passing only a little urine. Feeling thirstier than usual. You have new or worsening belly pain. You have a new or higher fever. You vomit blood or what looks like coffee grounds. Watch closely for changes in your health, and be sure to contact your doctor if: You have ongoing nausea and vomiting. Your vomiting is getting worse. Your vomiting lasts longer than 2 days. You are not getting better as expected. Credits for Nausea and Vomiting: Care Instructions Current as of: December 13, 2022 Author: [employer] Staff Clinical Review Board All [employer] education is reviewed by a team that includes physicians, nurses, advanced practitioners, registered dieticians, and other healthcare professionals. e-Prescriptions Potassium Chloride (POTASSIUM CHLORIDE CR) 10 Meq Tb 1 TAB PO DAILY for 7 Days, #7 TAB 5 Refills Prov: FAVIO SIBLEY MD 09/07/24 Ondansetron Odt 4MG Tab (ZOFRAN PO) 4 Mg Tb 4 MG PO TIDPRN PRN for 3 Days, #9 TAB ODT TAB-DISSOLVE IN MOUTH, THEN SWALLOW Prov: FAVIO SIBLEY MD 09/07/24 Comments 34-year-old female presented with abdominal pain, nausea, vomiting and diarrhea. No peritoneal signs on abdominal exam. No evidence of acute abdomen at this time. patient is well appearing and her symptoms improved during the ED observation. Anemia noted. Potassium replaced in the emergency department. Labs show no leukocytosis or elevation of LFTs. Imaging warranted at this time. Patient is afebrile. Patient is not hypotensive. Low suspicion for acute hepatobiliary disease (including acute cholecystitis, acute pancreatitis, PUD (including perforation), acute infectious process (pneumonia, hepatitis, pyelonephritis), acute appendicitis, vascular catastrophe, bowel obstructions, viscous perforation. Presentation not consistent with other acute, emergent causes of abdominal pain at this time. Extensive evaluation was performed in attempt to identify or rule out: (See differential diagnosis section) The following tests were ordered, and results were reviewed by me and discussed with patient: (See diagnostic results section) The following test were independently interpreted by me: N/A I reviewed and agreed with the following test results read by other providers: N/A I reviewed the following notes from the pt's past medical encounters: January 02, 2020, August 09, 2020, September 26, 2023, October 28, 2023, and November 11, 2023 encounters for cough/headache, pedal edema, low back strain, pneumonia, and respiratory distress, respectively Additional information was gathered from interviewing the following independent historians: N/A Discussion of management or test interpretation with external physician/other qualified health direct support professional caregiver: N/A Addressed [ ]one or more chronic illnesses with severe exacerbation, progression, or side effects of treatment: [ ]an acute or chronic illness that poses a threat to life or bodily function: [ ] Decision regarding hospitalization or escalation of hospital level of care: Risk and benefits of admission for further treatment of patient's condition was considered. Due to patient's current clinical condition, high risk of decline and poor outcome if discharged and need for further inpatient management and monitoring, patient will be admitted to the hospital. Drug therapy requiring intensive monitoring for toxicity: N/A Parenteral controlled substances: N/A Decision regarding elective major surgery with identified patient or procedure risk factors: N/A Decision regarding emergency major surgery: N/A Decision not to resuscitate or to de-escalate care because of poor prognosis: N/A Diagnosis or treatment significantly limited by social determinants of health: N/A Decision regarding hospitalization or escalation of hospital level of care: Risks and benefits of admission for further treatment of patient's condition was considered however due to patient's stable condition patient will be discharged to follow up closely or return to care for worsening of condition or inability to follow up. Critical Care Note Critical Care Time?: No Stability Stability form required: No Heart Score Heart Score: Heart Score Response (Comments) Value History N/A 0 EKG N/A 0 Age N/A 0 Risk Factors N/A 0 Troponin N/A 0 Total 0 I personally scribed for FAVIO SIBLEY MD ([email or web address]) on 09/07/24 at 02:18. Electronically submitted by Eliot Hidalgo ([email or web address]). FAVIO SIBLEY MD Sep 07, 2024 02:18
[2024-09-07] MEDS: SODIUM CHLORIDE 0.9% 1,000 ML IV ONE (02:20)
[2024-09-07] MEDS: POTASSIUM EFFERVESENT TAB 25 MEQ PO ONE (02:24)
[2024-09-07] MEDS ORDERED: ZOFR4T PO (02:26)
[2024-09-07] MEDS ORDERED: POTA-36 PO (02:26)
[2024-09-07 03:00] VITALS: BP 123/75; PULSE 80; RESP 14; O2SAT 100
== END 2024-09-07 03:00 | disposition home or self-care (01) ==
LOC: EEVIPCON 22:59 → ER 22:59
DX: E87.6 Hypokalemia (principal); D64.9 Anemia, unspecified; R10.13 Epigastric pain; R11.2 Nausea with vomiting, unspecified; R19.7 Diarrhea, unspecified; E66.01 Morbid (severe) obesity due to excess calories; Z79.1 Long term (current) use of non-steroidal anti-inflammatories (NSAID); Z79.52 Long term (current) use of systemic steroids; Z79.899 Other long term (current) drug therapy; Z88.2 Allergy status to sulfonamides
CPT/HCPCS: 36415; 80053; 81001; 81025; 83605; 83690; 85025; 87086; 96360; 99284; J7030; Q0162

== ENCOUNTER 2024-09-09 06:09 | Inpatient (IN) | payer MEDICAID ==
[~2024-09-09] VITALS: Ht 157.5 cm; Wt 110.0 kg
[~2024-09-09 06:09] MED LIST changes: +POTA-36 PO; +ZOFR4T PO
--- NOTE | 2024-09-09 06:58 | ED.PDOC ---
GI ASSESSMENT HPI Comments This is a 34 year old female presenting to the ED with chief complaint of nausea and vomiting. Patient reports that she has been experiencing nausea and vomiting since Saturday, being seen in [facility] that day and was given Potassium and Zofran. Patient relays that she was okay up until Saturday where her nausea and vomiting started again with associated epigastric pain, causing her to come back to the ED for treatment. Patient states she has been on Zepbound, but her last dose was on Saturday, skipping this week due to her symptoms. Patient denies any diarrhea, fever, chills, dysuria, chest pain, hematemesis, or flank pain. Chief Complaint: Abdominal Pain Time Seen by MD: 06:55 Reviewed Notes: Nurses Notes, Medications, Allergies Allergies: Coded Allergies: Sulfa Antibiotics (Verified Allergy, Unknown, 08/09/20) Home Meds Active Scripts Potassium Chloride (POTASSIUM CHLORIDE CR) 10 Meq Tb, 1 TAB PO DAILY for 7 Days, #7 TAB 5 Refills Prov:FAVIO SIBLEY MD 09/07/24 Ondansetron Odt 4MG Tab (ZOFRAN PO) 4 Mg Tb, 4 MG PO TIDPRN PRN for 3 Days, #9 TAB ODT TAB-DISSOLVE IN MOUTH, THEN SWALLOW Prov:FAVIO SIBLEY MD 09/07/24 Prednisone (Prednisone) 20 Mg Tab, 40 MG PO DAILY for 5 Days, #10 MG Prov:PREMA RIDDLE 11/12/23 Nitrofurantoin (Nitrofurantoin) 100 Mg Cap, 1 CAP PO BID for 5 Days, #10 CAP Prov:PREMA RIDDLE 11/12/23 Multiple Vitamin (Mvi Tab) 1 Tab Tb, 1 TAB PO DAILY for 30 Days, #30 TAB Prov:PREMA RIDDLE 11/12/23 Ascorbic Acid (VITAMIN C TABLET) 500 Mg Tb, 500 MG PO BID for 30 Days, #60 TAB Prov:PREMA RIDDLE 11/12/23 Acetaminophen (Acetaminophen) 325 Mg Tab, 650 MG PO Q6HP PRN for 10 Days, #80 TAB Prov:PREMA RIDDLE 11/12/23 Ipratropium Dickey Hfa (Atrovent Hfa) 17 Mcg Aer, 17 MCG IN Q4HR PRN, #1 AER Prov:KRIS PERALTA MD 10/31/23 Albuterol Sulfate (VENTOLIN MDShukri) 90 Mcg Ih, 90 MCG IN Q4HR PRN, #1 INH Prov:KRIS PERALTA MD 10/31/23 Methocarbamol (Methocarbamol) 750 Mg Tab, 750 MG PO BID, #20 TAB Prov:OLIVA STANFORD 09/26/23 Ibuprofen (Ibuprofen) 800 Mg Tab, 1 TAB PO TID, #30 TAB Prov:OLIVA STANFORD 09/26/23 Information Source: Patient Mode of Arrival: Ambulatory Timing: Days Duration: Since onset Prehospital treatment: None Quality: Sharp Vomitus: Watery Stool: Normal Severity: Moderate Recent: None Recent Hx of: None Pain Location: Epigastric Modifying Factors: Nothing Associated sign and symptoms: Nausea, Vomiting, Abdominal Pain Past Medical History PAST MEDICAL HISTORY: UTI'S Surgical History: Denies all surgeries [employer] History: Other Family History Family History: Reviewed,noncontributory to illness, Family hx of Cancer, Family hx of heart machelle, Family hx of HTN Social History Smoker: Non-Smoker Alcohol: Occasionally Drugs: Denies Drug Use Lives In: Home Constitutional: denies: chills, diaphoresis, fatigue, fever, malaise, sweats, weakness, others EENTM: denies: blurred vision, double vision, ear bleeding, ear discharge, ear drainage, ear pain, ear ringing, eye pain, eye redness, hearing loss, mouth p ain, mouth swelling, nasal discharge, nose bleeding, nose congestion, nose pain, photophobia, tearing, throat pain, throat swelling, voice changes, others Respiratory: denies: cough, hemoptysis, orthopnea, SOB at rest, shortness of br eath, SOB with excertion, stridor, wheezing, others Cardiovascular: denies: chest pain, dizzy spells, diaphoresis, Dyspnea on exertion, edema, irregular heart beat, left arm pain, lightheadedness, palpitations, PND, syncope, others Gastrointestinal: reports: abdominal pain, nausea, vomiting; denies: abdomen distended, blood streaked bowels, constipated, diarrhea, dysphagia, difficulty swallowing, hematemesis, melena, poor appetite, poor fluid intake, rectal bleeding, rectal pain, others Genitourinary: denies: abnormal vagina bleeding, burning, dyspareunia, dysuria, flank pain, frequency, hematuria, incontinence, pain, , vagina discharge, urgency, others Neurological: denies: dizziness, fainting, headache, left sided numbness, left sided weakness, numbness, paresthesia, pre-existing deficit, right sided numbness, right sided weakness, seizure, speech problems, tingling, tremors, weakness, others Musculoskeletal: denies: back pain, gout, joint pain, joint swelling, muscle pain, muscle stiffness, neck pain, others Integumetry: denies: bruises, change in color, change in hair/nails, dryness, laceration, lesions, lumps, rash, wounds, others Allergic/Immunocompromised: denies: Difficulty Healing, Frequent Infections, Hives, Itching, others Hematologic/Lymphatic: denies: anemia, blood clots, easy bleeding, easy bruising, swollen glands, others Endocrine: denies: excessive hunger, excessive sweating, excessive thirst, excessive urination, flushing, intolerance to cold, intolerance to heat, unexplained weight gain, unexplained weight loss, others Psychiatric: denies: anxiety, bipolar disorder, depression, hopeless, panic disorder, schizophrenia, sleepless, suicidal, others All Other Systems: Reviewed and Negative Physical Exam General Appearance: No Apparent Distress, Normal HEENT: Normal ENT Inspection, Pharynx Normal, TMs Normal Neck: Full Range of Motion, Non-Tender, Normal, Normal Inspection Respiratory: Chest Non-Tender, Lungs Clear, No Accessory Muscle Use, No Respiratory Distress, Normal Breath Sounds Cardiovascular: No Edema, No JVD, No Murmur, No Gallop, Normal Peripheral Pulses, Regular Rate/Rhythm Breast Exam: Deferred Gastrointestinal: No Organomegaly, No Pulsatile Mass, Normal Bowel Sounds, Soft, Tenderness (Epigastric tenderness) Genitalia: Deferred Pelvic: Deferred Rectal: Deferred Extremities: No calf tenderness, Normal capillary refill, Normal inspection, Normal range of motion, Non-tender, No pedal edema Musculoskeletal : Apperance: Normal Neurologic: Alert, information technology internship II-XII nml as Tested, No Motor Deficits, Normal Affect, Normal Mood, No Sensory Deficits Cerebellar Function: Normal Reflexes: Normal Skin: Dry, Normal Color, Warm Lymphatic: No Adenopathy Was a procedure done? Was a procedure done?: No GI differential Dx Differential Diagnosis: Cholecystitis, Gastritis/PUD, Gastroenteritis, Dehydration X-Ray, Labs, Meds, VS Vital Signs Date Time Temp Pulse Resp B/P (MAP) Pulse Ox O2 Delivery O2 Flow Rate FiO2 09/09/24 12:00 70 16 100/56 (71) 97 09/09/24 10:30 71 16 116/65 (82) 96 09/09/24 09:25 88 16 98 Room Air* 0 21 09/09/24 08:30 98.1 88 16 128/72 (90) 98 98.1 09/09/24 06:19 98.1 92 20 123/71 (88) 100 98.1 Lab Test 09/09/24 09:36 09/09/24 06:47 Range/Units Urine Color Yellow Yellow Urine Clarity Turbid H Clear Urine pH 5.5 5.0-9.0 Urine Specific [place] 1.030 1.001-1.035 Urine Protein Trace H Negative Urine Ketones 1+ H Negative Urine Blood Negative Negative /uL Urine Nitrite Negative Negative Urine Bilirubin Negative Negative Urine Urobilinogen Normal Negative mg/dL Urine Leukocyte Esterase 3+ Negative /uL Urine RBC 7 0 - 4 /hpf Urine Microscopic WBC 45 H 0-5 /HPF Urine Squamous Epithelial Cells Mod <5 /hpf Urine Bacteria Few H None Seen /hpf Urine Hyaline Casts Few 0 - 2 /lpf Urine Mucus Few None Seen Urine Glucose Normal Normal mg/dL White Blood Count 6.3 4.4-10.8 10^3/uL Red Blood Count 5.25 H 4.0-5.20 10^6/uL Hemoglobin 10.0 L 12.2-16.2 g/dL Hematocrit 32.6 L 36.0-46.0 % Mean Corpuscular Volume 62.1 L 80.0-100.0 fL Mean Corpuscular Hemoglobin 19.0 L 28.0-32.0 pg Mean Corpuscular Hemoglobin Concent 30.6 L 32.0-36.0 g/dL Red Cell Distribution Width 17.9 H 11.8-14.3 % Platelet Count 177 140-450 10^3/uL Mean Platelet Volume 8.9 6.9-10.8 fL Neutrophils (%) (Auto) 61.0 37.0-80.0 % Lymphocytes (%) (Auto) 33.5 10.0-50.0 % Monocytes (%) (Auto) 4.6 0.0-12.0 % Eosinophils (%) (Auto) 0.7 0.0-7.0 % Basophils (%) (Auto) 0.2 0.0-2.0 % Neutrophils # (Auto) 3.8 1.6-8.6 10 ^3/uL Lymphocytes # (Auto) 2.1 0.4-5.4 10 ^3/uL Monocytes # (Auto) 0.3 0-1.3 10 ^3/uL Eosinophils # (Auto) 0 0-0.8 10 ^3/uL Basophils # (Auto) 0 0-0.2 10 ^3/uL Nucleated Red Blood Cells 0.0 % Sodium Level 139 136-145 mmol/L Potassium Level 3.4 L 3.5-5.1 mmol/L Chloride Level 105 98-107 mmol/L Carbon Dioxide Level 24 20-31 mmol/L Anion Gap 10 5-15 Blood Urea Nitrogen 11 9-23 mg/dL Creatinine 0.69 0.550-1.02 mg/dL Glomerular Filtration Rate Calc 117 >90 mL/min BUN/Creatinine Ratio 15.9 10.0-20.0 Serum Glucose 94 74-106 mg/dL Calcium Level 9.1 8.7-10.4 mg/dL Total Bilirubin 0.4 0.2-1.0 mg/dL Aspartate Amino Transferase (AST) 20 13-40 U/L Alanine Aminotransferase (ALT) 14 7-40 U/L Alkaline Phosphatase 63 46-116 U/L Total Protein 7.7 5.7-8.2 g/dL Albumin 4.6 3.2-4.8 g/dL Lipase 38 12-53 U/L Current Medications Medications (Trade) Dose Ordered Sig/Neli Route Start Time Stop Time Status Last Admin Sodium Chloride 1,000 ml @ 1,000 mls/hr Q1H ONCE IV 09/09/24 06:45 09/09/24 07:44 DC 09/09/24 09:16 Ondansetron HCl (Zofran) 4 mg ONCE ONCE IV 09/09/24 06:45 09/09/24 06:46 DC 09/09/24 09:16 Pantoprazole Sodium (Protonix) 40 mg ONCE ONCE IV 09/09/24 06:45 09/09/24 06:46 DC 09/09/24 09:16 Ketorolac Tromethamine (Toradol Injection) 15 mg ONCE ONCE IV 09/09/24 09:30 09/09/24 09:31 DC 09/09/24 09:28 Time of 1ST Reevaluation: 07:55 Reevaluation 1ST: Unchanged Patient Education/Counseling: Diagnosis, Treatment Family Education/Counseling: No Family Present Additional Information Previous visits reviewed: 09/06/24 for Nausea and Vomiting The following tests were ordered, and results were reviewed by me: CBC, CMP, Lipase, UA Additional Information was gathered from interviewing the following independent historians: N/A I reviewed and agreed with the following test results read by other providers: N/A I discussed treatment and results with medical personnel and: patient Comprehensive systems review obtained and negative except for what is stated in the HPI. SEPSIS Sepsis Screen Date sepsis recognized/suspect: Sep 09, 2024 Time Sepsis recognized/suspect: 613 Recent Procedure: No On Antibiotic Therapy: No Respiratory Rate >20: No Heart Rate >90: Yes Temp<36 C (96.8 F) or >38.3 C: No SBP <90 or MAP <65 mmHG: No New Acute Mental Status Change: No Is the patient on CPAP, BIPAP,: No Physician Orders Gallbladder (09/09/24 11:08) Vital Signs Date Time Temp Pulse Resp B/P (MAP) Pulse Ox O2 Delivery O2 Flow Rate FiO2 09/09/24 12:00 70 16 100/56 (71) 97 09/09/24 10:30 71 16 116/65 (82) 96 09/09/24 09:25 88 16 98 Room Air* 0 21 09/09/24 08:30 98.1 88 16 128/72 (90) 98 98.1 09/09/24 06:19 98.1 92 20 123/71 (88) 100 98.1 Laboratory Tests Test 09/09/24 06:47 White Blood Count 6.3 10^3/uL (4.4-10.8) Medications Medications Dose Ordered Sig/Neli Route Start Time Stop Time Status Last Admin Dose Admin Ketorolac Tromethamine 15 mg ONCE ONCE IV 09/09/24 09:30 09/09/24 09:31 DC 09/09/24 09:28 Ondansetron HCl 4 mg ONCE ONCE IV 09/09/24 06:45 09/09/24 06:46 DC 09/09/24 09:16 Pantoprazole Sodium 40 mg ONCE ONCE IV 09/09/24 06:45 09/09/24 06:46 DC 09/09/24 09:16 Sodium Chloride 1,000 ml @ 1,000 mls/hr Q1H ONCE IV 09/09/24 06:45 09/09/24 07:44 DC 09/09/24 09:16 Departure 1 Departure Time of Disposition: 18:34 (Patient presented with abdominal pain that was concerning for possible appendicits, gastritis, cholecystitis, colitis, gastroenteritis, sbo, or orther possible surgical emergency. Data: 1. I ordered and reviewed the result of at least 3 labs including a CBC, BMP, and Urinalysis. 2. I independently interpreted the following tests: Ultrasound is concerning for cholelithiasis.Risk:This patient has a high risk of morbidity due to further diagnostic testing or treatment and may suffer from an acute abdominal process disorder. Workup reveals cholelithiasis and intractable nausea and vomiting and patient should be admitted for further workup. and possible expert consultation. ) Impression: Primary Impression: Cholelithiasis Qualified Codes: K80.20 - Calculus of gallbladder without cholecystitis without obstruction Additional Impressions: Projectile vomiting with nausea Intractable abdominal pain Disposition: ADMITTED INPATIENT Admit to: Med Surg Condition: Serious Critical Care Note Critical Care Time?: No Stability Stability form required: No Heart Score Heart Score: Heart Score Response (Comments) Value History N/A 0 EKG N/A 0 Age N/A 0 Risk Factors N/A 0 Troponin N/A 0 Total 0 I personally scribed for MARE KOCH MD ([email or web address]) on 09/09/24 at 06:58. Electronically submitted by Fredy Roach ([email or web address]). MARE KOCH MD Sep 09, 2024 06:58
[2024-09-09 07:26] LABS: Hematocrit 32.6 % (36.0-46.0); Hemoglobin 10.0 g/dL (12.2-16.2); Mean Corpuscular Hemoglobin 19.0 pg (28.0-32.0); Mean Corpuscular Volume 62.1 fL (80.0-100.0); Nucleated Red Blood Cells % 0.0 %
[2024-09-09 07:39] LABS: Alanine Aminotransferase 14 U/L (7-40); Albumin 4.6 g/dL (3.2-4.8); Alkaline Phosphatase 63 U/L (46-116); Anion Gap 10 (5-15); BUN/Creatinine Ratio 15.9 (10.0-20.0); Bilirubin, Total 0.4 mg/dL (0.2-1.0); Blood Urea Nitrogen 11 mg/dL (9-23); Calcium 9.1 mg/dL (8.7-10.4); Carbon Dioxide 24 mmol/L (20-31); Chloride 105 mmol/L (98-107); Glucose 94 mg/dL (74-106); Lipase 38 U/L (12-53); Sodium 139 mmol/L (136-145); Total Protein 7.7 g/dL (5.7-8.2)
[2024-09-09 07:42] LABS: Potassium 3.4 mmol/L (3.5-5.1)
[2024-09-09] MEDS: ONDANSETRON HCL 4 MG/2 ML VIAL IV ONE (09:16)
[2024-09-09] MEDS: PANTOPRAZOLE 40 MG/10 ML VIAL INJ IV ONE (09:16)
[2024-09-09] MEDS: SODIUM CHLORIDE 0.9% 1,000 ML IV ONE (09:16)
[2024-09-09 09:25] VITALS: PULSE 88; RESP 16; O2SAT 98
[2024-09-09] MEDS: KETOROLAC TROMETH 30 MG/ML 1ML VIAL IV ONE (09:28)
--- NOTE | 2024-09-09 11:57 | DVH ---
INDICATION: ruq pain TECHNIQUE: Multiple real-time sonographic images were obtained of the right upper quadrant. COMPARISON: None FINDINGS: The liver demonstrates increased echotexture without focal mass lesions. The liver measure s 14.1 cm. There is no intrahepatic or extrahepatic ductal dilatation. The common duct measures 0.4 cm. Cholelithiasis. Gallbladder polyp is present measuring 0.5 cm. The gallbladder wall measures 0.1 cm a nd is within normal limits. The right kidney measures 12.3 cm. The right kidney is normal in contour, size, and shape. The echoge nicity is normal. There is no hydronephrosis. The pancreas is not well visualized due to overlying bowel gas. IMPRESSION: Hepatic steatosis. Cholelithiasis without secondary signs of cholecystitis. Gallbladder polyp is present measuring 0.5 cm. FOLLOW UP RECOMMENDATIONS: Low-risk polyps (pedunculated with a thick or wide stalk, or sessile): < 6 mm: no follow-up 7-9 mm follow-up ultrasound at 12 months 10-14 mm: follow-up ultrasound at 6, 12, 24, and 36 months vs surgical consult > 15 mm: surgical consult Bernie Vásquez, Guido C, Jake J et al. Management of Incidentally Detected Gallbladder Polyps: Society of Radiologists in Ultrasound Consensus Conference Recommendations. Radiology. 2021;:[id number].
[2024-09-09 12:19] LABS: Urine Protein, UAD TRACE (Negative)
--- NOTE | 2024-09-09 12:23 | DVHHP2 ---
History of Present Illness Reason for Visit: Acute abdominal pain History of Present Illness The patient is a 34-year-old female with past medical history of UTIs who presented to [facility] ED with complaint of abdominal pain. Patient reports that she has been experiencing epigastric pain for the past 4 days asso ciated nausea, vomiting, getting worse that prompted this visit. Patient was seen and evaluated in the ED, laboratory data shows WBC 6.3, hemoglobin 10.0, hematocrit 32.6, platelets 177, sodium 139, potassium 3.4, BUN 11, creatinine 0.69, glucose 94, calcium 9.1, lipase 38. Gallbladder ultrasound revealing cholelithiasis without secondary signs of cholecystitis, gallbladder polyps is present measuring 0.5 cm. Please see medication orders section in the computer. On my assessment, patient denied chest pain, no headache, no dizziness, no shortness of breath, no diarrhea, no abdominal pain, nausea or vomiting at this moment, no fever, no chills. Patient was admitted for further evaluation and medical management. Past Medical History UTI'S Past Surgical History Denies all surgeries Family History Reviewed, noncontributory to the management of this case. Past Social History The patient lives at home, denies smoking, alcohol or illicit drugs abuse. Review of Systems Constitutional: No: Fever, Chills, Sweats, Weakness, Malaise, Other Eyes: No: Pain, Vision change, Conjunctivae inflammation, Eyelid inflammation, Other, Redness ENT: No: Ear pain, Ear discharge, Nose pain, Nose discharge, Nose congestion, Mouth pain, Mouth swelling, Throat pain, Throat swelling, Other Respiratory: No: Cough, Dry, Shortness of breath, SOB with excertion, Wheezing, Hemoptysis, Pleuritic Pain, Sputum, Wheezing, Other Cardiovascular: No: Chest Pain, Palpitations, Orthopnea, Paroxysmal Noc. Dyspnea, Edema, Lt Headedness, Other Gastrointestinal: Nausea, Vomiting, Abdominal Pain; No: Diarrhea, Constipation, Melena, Hematochezia, Other Genitourinary: No Dysuria, No Frequency, No Incontinence, No Hematuria, No Retention, No Other Musculoskeletal: No: other, neck pain, shoulder pain, arm pain, back pain, hand pain, leg pain, foot pain Skin: No: Rash, Lesions, Jaundice, Bruising, Other Neurological: No: Weakness, Numbness, Incoordination, Change in speech, Confusion, Seizures, Other Allergies: Coded Allergies: Sulfa Antibiotics (Verified Allergy, Unknown, 08/09/20) Exam Vital Signs Vital Signs Date Time Temp Pulse Resp B/P (MAP) Pulse Ox O2 Delivery O2 Flow Rate FiO2 09/09/24 12:00 70 16 100/56 (71) 97 09/09/24 09:25 Room Air* 0 21 09/09/24 08:30 98.1 98.1 General Appearance: Alert, Oriented X3, Cooperative, No acute distress HEENT: Atraumatic, PERRLA, EOMI, Mucous membr. moist/pink Respiratory: Clear to auscultation, Normal air movement Cardiovascular: Regular rate, Normal S1, Normal S2, No murmurs Abdominal: Normal bowel sounds, Soft, No hepatospenomegaly, No masses, Other (Reports tenderness) Extremities: No clubbing, No cyanosis, No edema, Normal pulses, No tenderness/swelling Skin: No rashes, No breakdown, No significant lesion Neuro: Normal gait, Normal speech, Strength at 5/5 X4 ext, Normal tone, Sensation intact, Cranial nerves 3-12 NL, Reflexes 2+ Psych/Mental Status: Mental status NL, Mood NL Labs/Xrays Labs Test 09/09/24 09:36 09/09/24 06:47 Range/Units Urine Color Yellow Yellow Urine Clarity Turbid H Clear Urine pH 5.5 5.0-9.0 Urine Specific [place] 1.030 1.001-1.035 Urine Protein Trace H Negative Urine Ketones 1+ H Negative Urine Blood Negative Negative /uL Urine Nitrite Negative Negative Urine Bilirubin Negative Negative Urine Urobilinogen Normal Negative mg/dL Urine Leukocyte Esterase 3+ Negative /uL Urine RBC 7 0 - 4 /hpf Urine Microscopic WBC 45 H 0-5 /HPF Urine Squamous Epithelial Cells Mod <5 /hpf Urine Bacteria Few H None Seen /hpf Urine Hyaline Casts Few 0 - 2 /lpf Urine Mucus Few None Seen Urine Glucose Normal Normal mg/dL White Blood Count 6.3 4.4-10.8 10^3/uL Red Blood Count 5.25 H 4.0-5.20 10^6/uL Hemoglobin 10.0 L 12.2-16.2 g/dL Hematocrit 32.6 L 36.0-46.0 % Mean Corpuscular Volume 62.1 L 80.0-100.0 fL Mean Corpuscular Hemoglobin 19.0 L 28.0-32.0 pg Mean Corpuscular Hemoglobin Concent 30.6 L 32.0-36.0 g/dL Red Cell Distribution Width 17.9 H 11.8-14.3 % Platelet Count 177 140-450 10^3/uL Mean Platelet Volume 8.9 6.9-10.8 fL Neutrophils (%) (Auto) 61.0 37.0-80.0 % Lymphocytes (%) (Auto) 33.5 10.0-50.0 % Monocytes (%) (Auto) 4.6 0.0-12.0 % Eosinophils (%) (Auto) 0.7 0.0-7.0 % Basophils (%) (Auto) 0.2 0.0-2.0 % Neutrophils # (Auto) 3.8 1.6-8.6 10 ^3/uL Lymphocytes # (Auto) 2.1 0.4-5.4 10 ^3/uL Monocytes # (Auto) 0.3 0-1.3 10 ^3/uL Eosinophils # (Auto) 0 0-0.8 10 ^3/uL Basophils # (Auto) 0 0-0.2 10 ^3/uL Nucleated Red Blood Cells 0.0 % Sodium Level 139 136-145 mmol/L Potassium Level 3.4 L 3.5-5.1 mmol/L Chloride Level 105 98-107 mmol/L Carbon Dioxide Level 24 20-31 mmol/L Anion Gap 10 5-15 Blood Urea Nitrogen 11 9-23 mg/dL Creatinine 0.69 0.550-1.02 mg/dL Glomerular Filtration Rate Calc 117 >90 mL/min BUN/Creatinine Ratio 15.9 10.0-20.0 Serum Glucose 94 74-106 mg/dL Calcium Level 9.1 8.7-10.4 mg/dL Total Bilirubin 0.4 0.2-1.0 mg/dL Aspartate Amino Transferase (AST) 20 13-40 U/L Alanine Aminotransferase (ALT) 14 7-40 U/L Alkaline Phosphatase 63 46-116 U/L Total Protein 7.7 5.7-8.2 g/dL Albumin 4.6 3.2-4.8 g/dL Lipase 38 12-53 U/L PATIENT: JHOAN RAINEY ACCT: [id number] UNIT: [id number] : 1990 LOC: ER ROOM / BED: / AGE / SEX: 34 / F ADM STATUS: REG ER SERVICE 1108 ORDERING PHYSICIAN: MARE KOCH MD PROCEDURE(s): GBUS - GALLBLADDER REASON: ruq pain ORDER NUMBER(s): [id number], ACCESSION NUMBER(s): [id number] INDICATION: ruq pain TECHNIQUE: Multiple real-time sonographic images were obtained of the right upper quadrant. COMPARISON: None FINDINGS: The liver demonstrates increased echotexture without focal mass lesions. The liver measures 14.1 cm. There is no intrahepatic or extrahepatic ductal dilatation. The common duct measures 0.4 cm. Cholelithiasis. Gallbladder polyp is present measuring 0.5 cm. The gallbladder wall measures 0.1 cm and is within normal limits. The right kidney measures 12.3 cm. The right kidney is normal in contour, size, and shape. The echogenicity is normal. There is no hydronephrosis. The pancreas is not well visualized due to overlying bowel gas. IMPRESSION: Hepatic steatosis. Cholelithiasis without secondary signs of cholecystitis. Gallbladder polyp is present measuring 0.5 cm. FOLLOW UP RECOMMENDATIONS: Low-risk polyps (pedunculated with a thick or wide stalk, or sessile): < 6 mm: no follow-up 7-9 mm follow-up ultrasound at 12 months 10-14 mm: follow-up ultrasound at 6, 12, 24, and 36 months vs surgical consult > 15 mm: surgical consult Bernie Vásquez, Guido Francis, Jake J et al. Management of Incidentally Detected Gallbladder Polyps: Society of Radiologists in Ultrasound Consensus Conference Recommendations. Radiology. 2021;:[id number]. SEPSIS Sepsis Screen Date sepsis recognized/suspect: Sep 09, 2024 Time Sepsis recognized/suspect: 06 Recent Procedure: No On Antibiotic Therapy: No Respiratory Rate >20: No Heart Rate >90: Yes Temp<36 C (96.8 F) or >38.3 C: No SBP <90 or MAP <65 mmHG: No New Acute Mental Status Change: No Is the patient on CPAP, BIPAP,: No Physician Orders Gallbladder (09/09/24 11:08) Vital Signs Date Time Temp Pulse Resp B/P (MAP) Pulse Ox O2 Delivery O2 Flow Rate FiO2 09/09/24 12:00 70 16 100/56 (71) 97 09/09/24 10:30 71 16 116/65 (82) 96 09/09/24 09:25 88 16 98 Room Air* 0 21 09/09/24 08:30 98.1 88 16 128/72 (90) 98 98.1 09/09/24 06:19 98.1 92 20 123/71 (88) 100 98.1 Laboratory Tests Test 09/09/24 06:47 White Blood Count 6.3 10^3/uL (4.4-10.8) Medications Medications Dose Ordered Sig/Neli Route Start Time Stop Time Status Last Admin Dose Admin Ketorolac Tromethamine 15 mg ONCE ONCE IV 09/09/24 09:30 09/09/24 09:31 DC 09/09/24 09:28 15 MG Ondansetron HCl 4 mg ONCE ONCE IV 09/09/24 06:45 09/09/24 06:46 DC 09/09/24 09:16 4 MG Pantoprazole Sodium 40 mg ONCE ONCE IV 09/09/24 06:45 09/09/24 06:46 DC 09/09/24 09:16 40 MG Sodium Chloride 1,000 ml @ 1,000 mls/hr Q1H ONCE IV 09/09/24 06:45 09/09/24 07:44 DC 09/09/24 09:16 1,000 MLS/HR Assessment/Plan Assessment/Plan Acute abdominal pain Cholelithiasis Hypokalemia Intractable nausea and vomiting Plan 1. Admit to med surge unit 2. Breathing treatment 3. Pain control management 4. Management of fluids and electrolytes 5. Consultation for hospitalist 6. Diagnostic tests gallbladder ultrasound 7. DVT prophylaxis-on SCDs 8. Repeat labs CBC, CMP in a.m. 9. Continue with current medical management 10. Treatment plan discussed with patient and RN. Patient verbalized understanding. Plan discussed with: Patient, Other (RN) Problem List: (1) Acute abdominal pain (2) Cholelithiasis (3) Hypokalemia (4) Intractable nausea and vomiting Date of Service: Sep 09, 2024 Billing Provider: CRISTOBAL GASTELUM DNP Common Visit Codes: [id number] INP/OBS CARE (HIGH) CRISTOBAL GASTELUM DNP Sep 09, 2024 12:23
[2024-09-09] MEDS ORDERED: HYDROcodone-ACET 5/325MG TAB PO PRN (12:30)
[2024-09-09] MEDS ORDERED: NITROGLYCERIN 0.4 MG SL TAB SL PRN (12:30)
[2024-09-09] MEDS ORDERED: DOCUSATE SOD 100 MG CAP PO PRN (12:30)
[2024-09-09] MEDS ORDERED: MORPHINE SULFATE INJ 2 MG/ml SYRG IV PRN ×2 (12:30)
[2024-09-09] MEDS: POTASSIUM CHL 20 Meq TABLET PO ONE (13:09)
[2024-09-09] MEDS: SODIUM CHLORIDE 0.9% 1,000 ML IV SCH (13:09)
[2024-09-09 16:26] VITALS: BP 103/61; PULSE 68; RESP 14; RESP 15; TEMP 98.9; O2SAT 99
[2024-09-09 21:00] VITALS: BP 121/81; PULSE 70; RESP 16; TEMP 97.5; O2SAT 99
[2024-09-10] VITALS (7 sets, daily range): BP systolic 99–113; BP diastolic 66–74; PULSE 70–85; RESP 16–20; TEMP 96.9–98.3; O2SAT 96–99
[2024-09-10] MEDS: ACETAMINOPHEN 325 MG TAB PO PRN (00:55)
[2024-09-10] MEDS: LOPERAMIDE HCL 2 MG CAP/TAB PO PRN (00:59)
[2024-09-10 07:13] LABS: Hematocrit 30.2 % (36.0-46.0); Hemoglobin 9.2 g/dL (12.2-16.2); Mean Corpuscular Hemoglobin 18.9 pg (28.0-32.0); Mean Corpuscular Volume 62.4 fL (80.0-100.0); Nucleated Red Blood Cells % 0.1 %
[2024-09-10 07:27] LABS: Alanine Aminotransferase 19 U/L (7-40); Albumin 3.9 g/dL (3.2-4.8); Alkaline Phosphatase 54 U/L (46-116); Anion Gap 9 (5-15); BUN/Creatinine Ratio 15.0 (10.0-20.0); Blood Urea Nitrogen 9 mg/dL (9-23); Calcium 8.9 mg/dL (8.7-10.4); Carbon Dioxide 24 mmol/L (20-31); Glucose 85 mg/dL (74-106); Sodium 142 mmol/L (136-145); Total Protein 6.4 g/dL (5.7-8.2)
[2024-09-10 07:28] LABS: Bilirubin, Total 0.4 mg/dL (0.2-1.0); Chloride 109 mmol/L (98-107); Potassium 3.4 mmol/L (3.5-5.1)
[2024-09-10] MEDS: POTASSIUM EFFERVESENT TAB 25 MEQ PO ONE (10:04)
[2024-09-10] MEDS: PANTOPRAZOLE 40 MG/10 ML VIAL INJ IV SCH (10:04)
--- NOTE | 2024-09-10 12:21 | DVHPNRES ---
Progress Note Date Seen: Sep 10, 2024 Resident Creating Document: NINOSKA QUIROZ Has the PT tested + for MRSA If YES, has PT been informed?: No Medical Necessity Reason Pt with a Central, PICC or Fol: No Subjective Review of Systems The patient is a 34-year-old female with past medical history of UTIs who presented to ED with complaint of abdominal pain. Patient reports that she has been experiencing epigastric pain for the past 4 days associated nausea, vomiting, getting worse that prompted this visit. Patient described the pain as sharp, rated 7-8 out of 10. Patient was seen and evaluated in the ED, laboratory data shows WBC 6.3, hemoglobin 10.0, hematocrit 32.6, platelets 177, sodium 139, potassium 3.4, BUN 11, creatinine 0.69, glucose 94, calcium 9.1, lipase 38. Gallbladder ultrasound revealing cholelithiasis without secondary signs of cholecystitis, gallbladder polyps is present measuring 0.5 cm. The patient is currently taking Zepbound for weight management. On my assessment, patient denied chest pain, no headache, no dizziness, no shortness of breath, no diarrhea, no abdominal pain, nausea or vomiting at this moment, no fever, no chills. Patient was admitted for further evaluation and medical management. Objective vital signs Vital Sign Date Time Temp Pulse Resp B/P (MAP) Pulse Ox O2 Delivery O2 Flow Rate FiO2 09/10/24 05:21 96.9 76 20 108/74 (85) 96 96.9 09/09/24 16:26 Room Air* 0 21 Total Intake and Output 09/09/24 09/09/24 09/10/24 15:00 23:00 07:00 Intake Total 1060 ml 660 ml 890 ml Balance 1060 ml 660 ml 890 ml medications Current Medications Medications Dose Ordered Sig/Neli Route Start Time Stop Time Status Last Admin Dose Admin Pantoprazole Sodium 40 mg DAILY IV 09/10/24 10:00 09/10/24 10:04 40 MG Sodium Chloride 1,000 ml @ 60 mls/hr [id number] IV 09/09/24 12:30 09/10/24 10:11 60 MLS/HR Acetaminophen/ Hydrocodone Bitart 1 tab Q4HP PRN PO 09/09/24 12:30 Ondansetron HCl 4 mg Q4HP PRN IV 09/09/24 12:30 Acetaminophen 650 mg Q6HP PRN PO 09/09/24 12:30 09/10/24 00:55 650 MG Ceftriaxone Sodium 50 ml @ 100 mls/hr DAILY@09 IV 09/11/24 09:00 UNV laboratory and microbiology Laboratory Tests 09/10/24 06:35 Test 09/10/24 06:35 Range/Units Serum Glucose 85 74-106 mg/dL Microbiology Date/Time Source Procedure Growth Status 09/09/24 14:08 Stool Stool Culture - Preliminary Resulted 09/09/24 14:08 Stool Shiga Toxin I & II Pending Resulted Problem List/Assessment/Plan Problem List/Assessment/Plan # Acute abdominal pain likely due to viral gastroenteritis -continue Acetaminophen (Tylenol) 650 MG PO q6hp PRN -continue Hydrocodone-ACET 5/325 MG -continue Pantoprazole 40 MG IV daily -continue IV fluids # Cholelithiasis -Diagnostic tests gallbladder ultrasound -0.5cm gallbladder polyp identified -continue Ceftriaxone IV (Rocephin) IV # Hypokalemia -Potassium 3.4 on admit -Potassium supplement (effervescent tab) 25 MEQ PO # Intractable nausea and vomiting -continue ondansetron IV (Zofran) 4 MG IV q4hp PRN Treatment plan discussed with patient and Dr. Lazaro, Patient verbalized understanding. Plan discussed with: Patient, Dr. Lazaro Plan discussed with: Patient Sepsis reassessment post fluid Respiratory Effort: Non-Labored Respiratory Pattern: Regular Date of Service: Sep 10, 2024 Billing Provider: PHOEBE LAZARO MD Common Visit Codes: [id number] INP/OBS CARE(HIGH) NINOSKA QUIROZ RESIDENT Sep 10, 2024 12:21 SHARON PADILLA RESIDENT Sep 10, 2024 16:54 PHOEBE LAZARO MD Sep 15, 2024 13:39
[2024-09-10] MEDS: cefTRIAXone 1GM/50ML D5W 50 ML IV ONE (12:23)
[2024-09-11 01:00] VITALS: BP 115/74; PULSE 76; RESP 18; TEMP 98; O2SAT 96
[2024-09-11 05:00] VITALS: BP 100/70; PULSE 65; RESP 16; TEMP 97.7; O2SAT 95
--- NOTE | 2024-09-11 06:36 | DVHPNRES ---
Progress Note Date Seen: Sep 11, 2024 Resident Creating Document: NINOSKA QUIROZ Has the PT tested + for MRSA If YES, has PT been informed?: No Medical Necessity Reason Pt with a Central, PICC or Fol: No Subjective Review of Systems The patient is a 34-year-old female with past medical history of UTIs who presented to ED with complaint of abdominal pain. Patient reports that she has been experiencing epigastric pain for the past 4 days associated nausea, vomiting, getting worse that prompted this visit. Patient described the pain as sharp, rated 7-8 out of 10. Patient was seen and evaluated in the ED, laboratory data shows WBC 4.4, hemoglobin 9.2, hematocrit 30.2, platelets 161, sodium 142, potassium 3.4, BUN 9, creatinine 0.60, glucose 85, calcium 8.9. Gallbladder ultrasound revealing cholelithiasis without secondary signs of cholecystitis, gallbladder polyps is present measuring 0.5 cm. The patient is currently taking Zepbound for weight management. On my assessment, patient denied chest pain, no headache, no dizziness, no shortness of breath, no diarrhea, no abdominal pain, nausea or vomiting at this moment, no fever, no chills. Patient was admitted for further evaluation and medical management. Patient reports: No new complaints Objective vital signs Vital Sign Date Time Temp Pulse Resp B/P (MAP) Pulse Ox O2 Delivery O2 Flow Rate FiO2 09/11/24 05:00 97.7 65 16 100/70 (80) 95 97.7 09/10/24 20:00 Room Air* 0 21 Total Intake and Output 09/10/24 09/10/24 09/11/24 15:00 23:00 07:00 Intake Total 590 ml 1090 ml 1520 ml Balance 590 ml 1090 ml 1520 ml medications Current Medications Medications Dose Ordered Sig/Neli Route Start Time Stop Time Status Last Admin Dose Admin Pantoprazole Sodium 40 mg DAILY IV 09/10/24 10:00 09/10/24 10:04 40 MG Sodium Chloride 1,000 ml @ 60 mls/hr [id number] IV 09/09/24 12:30 09/11/24 03:35 60 MLS/HR Acetaminophen/ Hydrocodone Bitart 1 tab Q4HP PRN PO 09/09/24 12:30 Ondansetron HCl 4 mg Q4HP PRN IV 09/09/24 12:30 Acetaminophen 650 mg Q6HP PRN PO 09/09/24 12:30 09/10/24 16:42 650 MG Ceftriaxone Sodium 50 ml @ 100 mls/hr DAILY@09 IV 09/11/24 09:00 laboratory and microbiology Laboratory Tests 09/10/24 06:35 Test 09/10/24 06:35 Range/Units Serum Glucose 85 74-106 mg/dL Microbiology Date/Time Source Procedure Growth Status 09/09/24 14:08 Stool Stool Culture - Preliminary Resulted 09/09/24 14:08 Stool Shiga Toxin I & II - Final Resulted Problem List/Assessment/Plan Problem List/Assessment/Plan # Acute abdominal pain likely due to viral gastroenteritis -continue Acetaminophen (Tylenol) 650 MG PO q6hp PRN -continue Hydrocodone-ACET 5/325 MG -continue Pantoprazole 40 MG IV daily -continue IV fluids # Cholelithiasis -Diagnostic tests gallbladder ultrasound -0.5cm gallbladder polyp identified -continue Ceftriaxone IV (Rocephin) IV # Hypokalemia -Potassium 3.4 on admit -Potassium supplement (effervescent tab) 25 MEQ PO # Intractable nausea and vomiting -continue ondansetron IV (Zofran) 4 MG IV q4hp PRN Treatment plan discussed with patient and Dr. Hammond, Patient verbalized understanding. Plan discussed with: Patient, Dr. Hammond Plan discussed with: Patient, Other (RN) My Orders My Orders Orders - NINOSKA QUIROZ Procedure Category Date Status Time Complete Blood Count LAB 09/11/24 Logged 04:00 Basic Metabolic Panel LAB 09/11/24 Logged 04:00 Sepsis reassessment post fluid Respiratory Effort: Non-Labored Respiratory Pattern: Regular NINOSKA QUIROZ Sep 11, 2024 06:36
[2024-09-11 07:36] LABS: Hematocrit 29.8 % (36.0-46.0); Hemoglobin 9.0 g/dL (12.2-16.2); Mean Corpuscular Hemoglobin 18.8 pg (28.0-32.0); Mean Corpuscular Volume 62.2 fL (80.0-100.0); Nucleated Red Blood Cells % 0.1 %
[2024-09-11 07:44] LABS: Anion Gap 7 (5-15); Calcium 8.7 mg/dL (8.7-10.4); Carbon Dioxide 25 mmol/L (20-31); Potassium 3.6 mmol/L (3.5-5.1); Sodium 141 mmol/L (136-145)
[2024-09-11 07:50] LABS: Glucose 85 mg/dL (74-106)
[2024-09-11 07:51] LABS: BUN/Creatinine Ratio 9.4 (10.0-20.0); Blood Urea Nitrogen < 5 mg/dL (9-23); Chloride 109 mmol/L (98-107)
[2024-09-11] MEDS: cefTRIAXone 1GM/50ML D5W 50 ML IV SCH (08:40)
[2024-09-11 09:00] VITALS: BP 103/67; PULSE 69; RESP 17; TEMP 95.7; O2SAT 96
[2024-09-11] MEDS ORDERED: CEPH250C PO (10:22)
[2024-09-11] MEDS ORDERED: FAMO20TA10 PO (10:22)
[2024-09-11] MEDS ORDERED: ZOFR4T PO (10:22)
[2024-09-11 13:00] VITALS: BP 102/62; PULSE 79; RESP 20; TEMP 96.7; O2SAT 96
--- NOTE | 2024-09-11 15:18 | DVHDSRES ---
Discharge Summary Date of Admission Resident Creating Document: NINOSKA QUIROZ RESIDENT Sep 09, 2024 at 12:19 Date of Discharge: Sep 11, 2024 Admitting Diagnosis Acute abdominal pain Labs/Diagnostic Data: Laboratory Results Test 09/11/24 07:06 09/10/24 06:35 09/09/24 09:36 09/09/24 06:47 White Blood Count 4.0 10^3/uL (4.4-10.8) Red Blood Count 4.79 10^6/uL (4.0-5.20) Hemoglobin 9.0 g/dL (12.2-16.2) Hematocrit 29.8 % (36.0-46.0) Mean Corpuscular Volume 62.2 fL (80.0-100.0) Mean Corpuscular Hemoglobin 18.8 pg (28.0-32.0) Mean Corpuscular Hemoglobin Concent 30.2 g/dL (32.0-36.0) Red Cell Distribution Width 18.2 % (11.8-14.3) Platelet Count 160 10^3/uL (140-450) Mean Platelet Volume 9.0 fL (6.9-10.8) Neutrophils (%) (Auto) 51.6 % (37.0-80.0) Lymphocytes (%) (Auto) 40.4 % (10.0-50.0) Monocytes (%) (Auto) 5.2 % (0.0-12.0) Eosinophils (%) (Auto) 2.3 % (0.0-7.0) Basophils (%) (Auto) 0.5 % (0.0-2.0) Neutrophils # (Auto) 2.1 10 ^3/uL (1.6-8.6) Lymphocytes # (Auto) 1.6 10 ^3/uL (0.4-5.4) Monocytes # (Auto) 0.2 10 ^3/uL (0-1.3) Eosinophils # (Auto) 0.1 10 ^3/uL (0-0.8) Basophils # (Auto) 0 10 ^3/uL (0-0.2) Nucleated Red Blood Cells 0.1 % Sodium Level 141 mmol/L (136-145) Potassium Level 3.6 mmol/L (3.5-5.1) Chloride Level 109 mmol/L (98-107) Carbon Dioxide Level 25 mmol/L (20-31) Anion Gap 7 (5-15) Blood Urea Nitrogen < 5 mg/dL (9-23) Creatinine 0.53 mg/dL (0.550-1.02) Glomerular Filtration Rate Calc 124 mL/min (>90) BUN/Creatinine Ratio 9.4 (10.0-20.0) Serum Glucose 85 mg/dL (74-106) Calcium Level 8.7 mg/dL (8.7-10.4) Total Bilirubin 0.4 mg/dL (0.2-1.0) Aspartate Amino Transferase (AST) 29 U/L (13-40) Alanine Aminotransferase (ALT) 19 U/L (7-40) Alkaline Phosphatase 54 U/L (46-116) Total Protein 6.4 g/dL (5.7-8.2) Albumin 3.9 g/dL (3.2-4.8) Urine Color Yellow (Yellow) Urine Clarity Turbid (Clear) Urine pH 5.5 (5.0-9.0) Urine Specific [place] 1.030 (1.001-1.035) Urine Protein Trace (Negative) Urine Ketones 1+ (Negative) Urine Blood Negative /uL (Negative) Urine Nitrite Negative (Negative) Urine Bilirubin Negative (Negative) Urine Urobilinogen Normal mg/dL (Negative) Urine Leukocyte Esterase 3+ /uL (Negative) Urine RBC 7 /hpf (0 - 4) Urine Microscopic WBC 45 /HPF (0-5) Urine Squamous Epithelial Cells Mod /hpf (<5) Urine Bacteria Few /hpf (None Seen) Urine Hyaline Casts Few /lpf (0 - 2) Urine Mucus Few (None Seen) Urine Glucose Normal mg/dL (Normal) Lipase 38 U/L (12-53) Other Laboratory Tests 09/11/24 07:06 Brief Hx & Hospital Course: The patient is a 34-year-old female with past medical history of UTIs who presented to ED with complaint of abdominal pain. Patient reports that she has been experiencing epigastric pain for the past 4 days associated nausea, vomiting, getting worse that prompted this visit. Patient described the pain as sharp, rated 7-8 out of 10. Patient was seen and evaluated in the ED, laboratory data shows WBC 4.4, hemoglobin 9.2, hematocrit 30.2, platelets 161, sodium 142, potassium 3.4, BUN 9, creatinine 0.60, glucose 85, calcium 8.9. Gallbladder ultrasound revealing cholelithiasis without secondary signs of cholecystitis, gallbladder polyps is present measuring 0.5 cm. The patient is currently taking Zepbound for weight management. On my assessment, patient denied chest pain, no headache, no dizziness, no shortness of breath, no diarrhea, no abdominal pain, nausea or vomiting at this moment, no fever, no chills. Patient was admitted for further evaluation and medical management. Patient reports: No new complaints Condition at Discharge: Stable Final Diagnosis/Problems List Acute abdominal pain likely due to viral gastroenteritis Discharge Disposition: Home SNF Discharge Will this Physician continue t: No (RN) Discharge Instruct/Medications Diet: Regular Activity: No Restrictions, As Tolerated Follow Up/Referral: Follow up with PCP in 2 weeks. Medications: As per EMR Scheduled Ascorbic Acid (Vitamin C Tablet), 500 MG PO BID Cephalexin (Keflex Capsule), 250 MG PO Q6HR Famotidine (Pepcid Tablet), 1 TAB PO BID Methocarbamol (Methocarbamol), 750 MG PO BID Multiple Vitamin (Mvi Tab), 1 TAB PO DAILY Ondansetron Odt 4MG Tab (Zofran Po), 4 MG PO TID Scheduled PRN Albuterol Sulfate (Ventolin Mdi), 90 MCG IN Q4HR PRN Ipratropium [place] Hfa (Atrovent Hfa), 17 MCG IN Q4HR PRN Discontinued Medications Acetaminophen (Acetaminophen), 650 MG PO Q6HP PRN Ibuprofen (Ibuprofen), 1 TAB PO TID Nitrofurantoin (Nitrofurantoin), 1 CAP PO BID Ondansetron Odt 4MG Tab (Zofran Po), 4 MG PO TIDPRN PRN Potassium Chloride (Potassium Chloride Cr), 1 TAB PO DAILY Prednisone (Prednisone), 40 MG PO DAILY Discharge Statement: "Patient was advised to return to the ER or call 911 if any headaches, dizziness, shortness of breath, chest pain, abdominal pain, bleeding, fevers, or worsening of medical condition. Patient was counseled about treatment plan, medications, possible side effects, patientverbalized understanding. All questions were answered to the best of my ability. This discharge took greater then 30 minutes in planning, reviewing documentation, counseling the patient, and discussing with other team members." ASSESSMENT ASSESSMENT Assessment Acute abdominal pain likely due to viral gastroenteritis Date of Service: Sep 11, 2024 Billing Provider: PHOEBE LAZRAO MD Common Visit Codes: [id number]/OBS DISCH DAY >30min NINOSKA QUIROZ RESIDENT Sep 11, 2024 15:18 PHOEBE LAZARO MD Sep 15, 2024 13:40
[2024-09-11] MEDS: ONDANSETRON HCL 4 MG/2 ML VIAL IV PRN (15:42)
[2024-09-11 16:54] VITALS: TEMP 35.9
== END 2024-09-11 17:31 | disposition home or self-care (01) | DRG 249 ==
LOC: EEVIPCON 06:09 → ER 06:09 → OVERFLOW 12:19 → CENTRAL 17:42
PROVIDERS: ADMIT Student in an Organized Health Care Education/Training Program; ATTEND Student in an Organized Health Care Education/Training Program
DX: A08.4 Viral intestinal infection, unspecified (principal); K80.20 Calculus of gallbladder without cholecystitis without obstruction; E87.6 Hypokalemia; Z87.440 Personal history of urinary (tract) infections
CPT/HCPCS: 36415; 76705; 80048; 80053; 81001; 83690; 85025; 87045; 87086; 87427; 87493; 96361; 96374; G0378; J1885; J2405; J2470

== ENCOUNTER 2025-01-18 01:39 | Emergency (ER) | payer MEDICAID ==
[~2025-01-18] VITALS: Ht 157.5 cm; Wt 97.2 kg
[~2025-01-18 01:39] MED LIST changes: -ACET-1882 PO; +CEPH250C PO; -IBUP-1456 PO; -NITR-52 PO; -POTA-36 PO; -PRED20TA2 PO
[2025-01-18] MEDS: IBUPROFEN 800 MG TAB PO ONE (02:05)
--- NOTE | 2025-01-18 02:10 | ED.PDOC ---
History of Present Illness HPI Comments 34-year-old morbidly obese female while at home getting ready for work sudden onset severe lower back pain shooting down to right leg. Denies fever, chills, NV, frequency, vag dc or previous trauma. No fecal or urinary incontinece.Denies trauma. Chief Complaint: Back Pain Time Seen by MD: 01:51 Reviewed Notes: Nurses Notes, Medications, Allergies Allergies: Coded Allergies: Sulfa Antibiotics (Verified Allergy, Unknown, 08/09/20) Home Meds Active Scripts Nitrofurantoin Monohydrate Mac (Macrobid) 100 Mg Cap, 100 MG PO BID for 5 Days, #10 CAP Prov:PALLAVI BILLINGSLEY 01/18/25 Ferrous Sulfate (FERROUS SULFATE) 325 Mg Tb, 1 TAB PO TID, #270 TAB 3 Refills Prov:PALLAVI BILLINGSLEY 01/18/25 Oxycodone W/ Acetaminophen (Percocet 5/325MG) 1 Tab Tb, 1 TAB PO QID, #20 TAB Prov:PALLAVI BILLINGSLEY 01/18/25 Capsaicin (Capsaicin) 0.025 % Cre, 0.025 % EX QID, #60 GM Prov:PALLAVI BILLINGSLEY 01/18/25 Prednisone (Prednisone) 20 Mg Tab, 50 MG PO DAILY for 3 Days, #3 MG Prov:PALLAVI BILLINGSLEY 01/18/25 Ondansetron Odt 4MG Tab (ZOFRAN PO) 4 Mg Tb, 4 MG PO TID for 3 Days, #9 TAB ODT TAB-DISSOLVE IN MOUTH, THEN SWALLOW Prov:SHARON PADILLA RESIDENT 09/11/24 Cephalexin (KEFLEX CAPSULE) 250 Mg Cp, 250 MG PO Q6HR for 5 Days, #20 CAP Prov:SHARON PADILLA RESIDENT 09/11/24 Multiple Vitamin (Mvi Tab) 1 Tab Tb, 1 TAB PO DAILY for 30 Days, #30 TAB Prov:PREMA RIDDLE RESIDENT 11/12/23 Ascorbic Acid (VITAMIN C TABLET) 500 Mg Tb, 500 MG PO BID for 30 Days, #60 TAB Prov:PREMA RIDDLE RESIDENT 11/12/23 Ipratropium [place] Hfa (Atrovent Hfa) 17 Mcg Aer, 17 MCG IN Q4HR PRN, #1 AER Prov:KRIS PERALTA MD 10/31/23 Albuterol Sulfate (VENTOLIN MDI) 90 Mcg Ih, 90 MCG IN Q4HR PRN, #1 INH Prov:KRIS PERALTA MD 10/31/23 Methocarbamol (Methocarbamol) 750 Mg Tab, 750 MG PO BID, #20 TAB Prov:OLIVA STANFORD 09/26/23 Information Source: Patient Mode of Arrival: Ambulatory Severity: Severe Timing: Hours Duration: Hours Prehospital treatment: Pain Meds Medication Refill: For: Pain Past Medical History PAST MEDICAL HISTORY: UTI'S Past Medical History (Other): +lupus Surgical History: Denies all surgeries 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 Family History Family History: Reviewed,noncontributory to illness, Family hx of Cancer, Family hx of heart machelle, Family hx of HTN Social History Smoker: Non-Smoker Alcohol: Occasionally Drugs: Denies Drug Use Lives In: Home Constitutional: denies: chills, diaphoresis, fatigue, fever, malaise, sweats, weakness, others EENTM: denies: blurred vision, double vision, ear bleeding, ear discharge, ear drainage, ear pain, ear ringing, eye pain, eye redness, hearing loss, mouth pain, mouth swelling, nasal discharge, nose bleeding, nose congestion, nose pain, photophobia, tearing, throat pain, throat swelling, voice changes, others Respiratory: denies: cough, hemoptysis, orthopnea, SOB at rest, shortness of breath, SOB with excertion, stridor, wheezing, others Cardiovascular: denies: chest pain, dizzy spells, diaphoresis, Dyspnea on exertion, edema, irregular heart beat, left arm pain, lightheadedness, palpit ations, PND, syncope, others Gastrointestinal: denies: abdomen distended, abdominal pain, blood streaked b owels, constipated, diarrhea, dysphagia, difficulty swallowing, hematemesis, melena, nausea, poor appetite, poor fluid intake, rectal bleeding, rectal pain, vomiting, others Genitourinary: denies: abnormal vagina bleeding, burning, dyspareunia, dysuria, flank pain, frequency, hematuria, incontinence, pain, , vagina discharge, urgency, others Neurological: denies: dizziness, fainting, headache, left sided numbness, left sided weakness, numbness, paresthesia, pre-existing deficit, right sided numbness, right sided weakness, seizure, speech problems, tingling, tremors, weakness, others Musculoskeletal: reports: back pain, muscle pain, muscle stiffness; denies: gout, joint pain, joint swelling, neck pain, others Integumetry: denies: bruises, change in color, change in hair/nails, dryness, laceration, lesions, lumps, rash, wounds, others Allergic/Immunocompromised: denies: Difficulty Healing, Frequent Infections, Hives, Itching, others Hematologic/Lymphatic: denies: anemia, blood clots, easy bleeding, easy bruising, swollen glands, others Endocrine: denies: excessive hunger, excessive sweating, excessive thirst, excessive urination, flushing, intolerance to cold, intolerance to heat, unexplained weight gain, unexplained weight loss, others Psychiatric: denies: anxiety, bipolar disorder, depression, hopeless, panic disorder, schizophrenia, sleepless, suicidal, others All Other Systems: Reviewed and Negative Physical Exam General Appearance: Obese, Severe Distress HEENT: NOT DONE Neck: Normal Inspection Respiratory: No Respiratory Distress Cardiovascular: Regular Rate/Rhythm Breast Exam: Deferred Gastrointestinal: Non Tender Genitalia: Deferred Pelvic: Normal External Exam Rectal: Deferred Extremities: Normal range of motion Musculoskeletal : Extremity Location: Back (severe tenderness lumbar shooting down to right posterior leg +right straight leg test) Neurologic: Abnormal Gait, Alert, No Sensory Deficits, R/L Numbness Cerebellar Function: NOT DONE Reflexes: Normal Skin: Normal Color Lymphatic: NOT DONE Was a procedure done? Was a procedure done?: No Differential Dx Considerations may include: sciatica vs lumbar muscoskeletal strain vs uti X-Ray, Labs, Meds, VS Vital Signs Date Time Temp Pulse Resp B/P (MAP) Pulse Ox O2 Delivery O2 Flow Rate FiO2 01/18/25 03:34 98.1 76 18 108/77 (87) 99 98.1 01/18/25 03:29 76 18 108/77 01/18/25 03:02 73 20 113/71 01/18/25 02:05 91 18 100 Room Air 01/18/25 01:40 97.9 91 18 104/83 100 97.9 Lab Test 01/18/25 04:03 01/18/25 02:37 11/24/25 02:07 Range/Units Urine RBC 8 0 - 4 /hpf Urine Microscopic WBC 50 H 0-5 /HPF Urine Squamous Epithelial Cells Mod <5 /hpf Urine Bacteria Few H None Seen /hpf Urine Mucus Few None Seen Amylase Level 31 30-118 U/L Lipase 39 12-53 U/L Hepatitis A Antibody Total Pending Hepatitis B Surface Antigen Pending Hepatitis B Surface Antibody Pending Hepatitis B Core Total Antibody Pending Hepatitis C Antibody Pending White Blood Count 6.3 4.4-10.8 10^3/uL Red Blood Count 4.79 4.0-5.20 10^6/uL Hemoglobin 9.1 L 12.2-16.2 g/dL Hematocrit 29.7 L 36.0-46.0 % Mean Corpuscular Volume 62.0 L 80.0-100.0 fL Mean Corpuscular Hemoglobin 18.9 L 28.0-32.0 pg Mean Corpuscular Hemoglobin Concent 30.5 L 32.0-36.0 g/dL Red Cell Distribution Width 18.5 H 11.8-14.3 % Platelet Count 202 140-450 10^3/uL Mean Platelet Volume 8.8 6.9-10.8 fL Neutrophils (%) (Auto) 61.5 37.0-80.0 % Lymphocytes (%) (Auto) 33.4 10.0-50.0 % Monocytes (%) (Auto) 4.0 0.0-12.0 % Eosinophils (%) (Auto) 0.7 0.0-7.0 % Basophils (%) (Auto) 0.4 0.0-2.0 % Neutrophils # (Auto) 3.9 1.6-8.6 10 ^3/uL Lymphocytes # (Auto) 2.1 0.4-5.4 10 ^3/uL Monocytes # (Auto) 0.3 0-1.3 10 ^3/uL Eosinophils # (Auto) 0 0-0.8 10 ^3/uL Basophils # (Auto) 0 0-0.2 10 ^3/uL Nucleated Red Blood Cells 0.1 % Erythrocyte Sedimentation Rate 16 0-20 mm/hr Sodium Level 139 136-145 mmol/L Potassium Level 3.9 3.5-5.1 mmol/L Chloride Level 103 98-107 mmol/L Carbon Dioxide Level 25 20-31 mmol/L Anion Gap 11 5-15 Blood Urea Nitrogen 12 9-23 mg/dL Creatinine 0.65 0.550-1.02 mg/dL Glomerular Filtration Rate Calc 118 >90 mL/min BUN/Creatinine Ratio 18.5 10.0-20.0 Serum Glucose 99 74-106 mg/dL Calcium Level 9.2 8.7-10.4 mg/dL C-Reactive Protein High Sensitivity 0.13 <1.0 mg/dL Current Medications Medications (Trade) Dose Ordered Sig/Neli Route Start Time Stop Time Status Last Admin Oxycodone HCl (OxyCONTIN ER Tablet) 10 mg ONCE ONCE PO 01/18/25 02:00 01/18/25 02:01 DC 01/18/25 02:04 Ibuprofen (Motrin Tablet) 800 mg ONCE ONCE PO 01/18/25 02:00 01/18/25 02:01 DC 01/18/25 02:05 Prednisone 60 mg ONCE ONCE PO 01/18/25 02:15 01/18/25 02:16 DC 01/18/25 02:24 Hydromorphone HCl (Dilaudid Injection) 1 mg ONCE ONCE IM 01/18/25 02:45 01/18/25 02:46 DC 01/18/25 03:02 [place] [id number] Ph: [phone] DIAGNOSTIC IMAGING Diagnostic Imaging Report : [id number] Signed PATIENT: JHOAN RAINEY ACCT: [id number] UNIT: [id number] : 1990 LOC: ER ROOM / BED: / AGE / SEX: 34 / F ADM STATUS: REG ER SERVICE [id number] ORDERING PHYSICIAN: PALLAVI BILLINGSLEY PROCEDURE(s): LUMB2 - LUMBAR SPINE 3 VIEW REASON: sudden onset severe low back pain shooting down to right leg ORDER NUMBER(s): [id number], ACCESSION NUMBER(s): [id number] EXAM: XY LUMBAR SPINE 3 VIEW CLINICAL INDICATION: sudden onset severe low back pain shooting down to right leg TECHNIQUE: XY LUMBAR SPINE 3 VIEW Comparison: XY LUMBAR SPINE 3 VIEW on DOS: 09/26/23 FINDINGS/IMPRESSION: There is no evidence of acute fracture or dislocation. Mild intervertebral disc space narrowing and endplate changes at T10-T11. Time of 1ST Reevaluation: 02:38 Reevaluation 1ST: Unchanged Patient Education/Counseling: Diagnosis, Treatment Family Education/Counseling: No Family Present SEPSIS Sepsis Screen Date sepsis recognized/suspect: Jan 18, 2025 Time Sepsis recognized/suspect: 0140 Recent Procedure: No On Antibiotic Therapy: No Respiratory Rate >20: No Heart Rate >90: Yes Temp<36 C (96.8 F) or >38.3 C: No SBP <90 or MAP <65 mmHG: No New Acute Mental Status Change: No Is the patient on CPAP, BIPAP,: No Physician Orders Lumbar Spine 3 View (01/18/25 01:55) Comprehensive Hepatitis Panel (01/18/25 02:37) Vital Signs Date Time Temp Pulse Resp B/P (MAP) Pulse Ox O2 Delivery O2 Flow Rate FiO2 01/18/25 03:34 98.1 76 18 108/77 (87) 99 98.1 01/18/25 03:29 76 18 108/77 01/18/25 03:02 73 20 113/71 01/18/25 02:05 91 18 100 Room Air 01/18/25 01:40 97.9 91 18 104/83 100 97.9 Laboratory Tests Test 01/18/25 02:07 White Blood Count 6.3 10^3/uL (4.4-10.8) Medications Medications Dose Ordered Sig/Neli Route Start Time Stop Time Status Last Admin Dose Admin Hydromorphone HCl 1 mg ONCE ONCE IM 01/18/25 02:45 01/18/25 02:46 DC 01/18/25 03:02 Ibuprofen 800 mg ONCE ONCE PO 01/18/25 02:00 01/18/25 02:01 DC 01/18/25 02:05 Oxycodone HCl 10 mg ONCE ONCE PO 01/18/25 02:00 01/18/25 02:01 DC 01/18/25 02:04 Prednisone 60 mg ONCE ONCE PO 01/18/25 02:15 01/18/25 02:16 DC 01/18/25 02:24 Departure 1 Departure Time of Disposition: 04:43 Impression: Primary Impression: Sciatica Additional Impressions: Iron deficiency anemia UTI (urinary tract infection) Morbidly obese Disposition: 01 HOME / SELF CARE / HOMELESS Condition: Stable e-Prescriptions Nitrofurantoin Monohydrate Mac (Macrobid) 100 Mg Cap 100 MG PO BID for 5 Days, #10 CAP Prov: PALLAVI BILLINGSLEY 01/18/25 Ferrous Sulfate (FERROUS SULFATE) 325 Mg Tb 1 TAB PO TID, #270 TAB 3 Refills Prov: PALLAVI BILLINGSLEY 01/18/25 Oxycodone W/ Acetaminophen (Percocet 5/325MG) 1 Tab Tb 1 TAB PO QID, #20 TAB Prov: PALLAVI BILLINGSLEY 01/18/25 Capsaicin (Capsaicin) 0.025 % Cre 0.025 % EX QID, #60 GM Prov: PALLAVI BILLINGSLEY 01/18/25 Prednisone (Prednisone) 20 Mg Tab 50 MG PO DAILY for 3 Days, #3 MG Prov: PALLAVI BILLINGSLEY 01/18/25 Discharged With: Self Critical Care Note Critical Care Time?: No Stability Stability form required: No Heart Score Heart Score: Heart Score Response (Comments) Value History N/A 0 EKG N/A 0 Age N/A 0 Risk Factors N/A 0 Troponin N/A 0 Total 0 I personally scribed for ER ([email or web address]) on 01/18/25 at 02:13. Electronically submitted by Sol Bui ([employer] I personally scribed for ER ([email or web address]) on 01/18/25 at 03:58. Electronically submitted by Sol Bui ([employer] I personally scribed for ER (EMERGENCY) on 01/18/25 at 04:39. Electronically submitted by Sol Bui ([employer] I personally scribed for ER (EMERGENCY) on 01/18/25 at 04:43. Electronically submitted by Sol Bui ([employer] I personally scribed for ER (EMERGENCY) on 01/18/25 at 04:46. Electronically submitted by Sol Bui ([employer] PALLAVI BILLINGSLEY Jan 18, 2025 02:10 ER Jan 18, 2025 02:13
[2025-01-18] MEDS: predniSONE 20 MG TAB PO ONE (02:24)
[2025-01-18 02:31] LABS: Mean Corpuscular Volume 62.0 fL (80.0-100.0)
[2025-01-18 02:32] LABS: Hematocrit 29.7 % (36.0-46.0); Hemoglobin 9.1 g/dL (12.2-16.2); Mean Corpuscular Hemoglobin 18.9 pg (28.0-32.0); Nucleated Red Blood Cells % 0.1 %
[2025-01-18] MEDS: HYDROmorphone HCL 2 MG/ML VL/or syr IM ONE (03:02)
[2025-01-18 03:15] LABS: Chloride 103 mmol/L (98-107); Potassium 3.9 mmol/L (3.5-5.1); Sodium 139 mmol/L (136-145)
[2025-01-18 03:16] LABS: Anion Gap 11 (5-15); Calcium 9.2 mg/dL (8.7-10.4); Carbon Dioxide 25 mmol/L (20-31)
[2025-01-18 03:21] LABS: BUN/Creatinine Ratio 18.5 (10.0-20.0); Blood Urea Nitrogen 12 mg/dL (9-23); Glucose 99 mg/dL (74-106)
[2025-01-18 03:34] VITALS: BP 108/77; PULSE 76; RESP 18; TEMP 98.1; O2SAT 99
--- NOTE | 2025-01-18 03:41 | DVH ---
EXAM: XY LUMBAR SPINE 3 VIEW CLINICAL INDICATION: sudden onset severe low back pain shooting down to right leg TECHNIQUE: XY LUMBAR SPINE 3 VIEW Comparison: XY LUMBAR SPINE 3 VIEW on DOS: 09/26/23 FINDINGS/IMPRESSION: There is no evidence of acute fracture or dislocation. Mild intervertebral disc space narrowing and endplate changes at T10-T11.
[2025-01-18 03:48] LABS: Lipase 39 U/L (12-53)
[2025-01-18 03:50] LABS: Amylase 31 U/L (30-118)
[2025-01-18] MEDS ORDERED: PRED20TA2 PO (04:38)
[2025-01-18] MEDS ORDERED: PERCOT PO (04:41)
[2025-01-18] MEDS ORDERED: CAPS0.0210 EX (04:41)
[2025-01-18] MEDS ORDERED: FER325T PO (04:45)
[2025-01-18] MEDS ORDERED: NITR-87 PO (04:46)
[2025-01-18 11:16] LABS: Hepatitis A Total Antibody Positive (Negative); Hepatitis B Surface Antigen Negative (Negative); Hepatitis C Antibody Negative (Negative)
[2025-01-19] MEDS ORDERED: CHOL100029 PO (02:07)
[2025-01-19] MEDS ORDERED: FAMO20TA10 PO (02:07)
[2025-01-19] MEDS ORDERED: TIRZ5INJ2 SC (02:07)
== END 2025-01-18 05:03 | disposition home or self-care (01) ==
LOC: EEVIPCON 01:39 → ER 01:39
DX: M54.40 Lumbago with sciatica, unspecified side (principal); D50.9 Iron deficiency anemia, unspecified; N39.0 Urinary tract infection, site not specified; Z87.440 Personal history of urinary (tract) infections; Z88.2 Allergy status to sulfonamides; Z79.899 Other long term (current) drug therapy
CPT/HCPCS: 36415; 72100; 80048; 81015; 82150; 83690; 85025; 85652; 86141; 86704; 86706; 86708; 86803; 87340; 96372; 99284; J1171; J7512

== ENCOUNTER 2025-01-18 17:04 | Inpatient (IN) | payer MEDICAID ==
[~2025-01-18] VITALS: Ht 162.6 cm; Wt 97.0 kg
[~2025-01-18 17:04] MED LIST changes: +CAPS0.0210 EX; +FER325T PO; +NITR-87 PO; +PERCOT PO; +PRED20TA2 PO
--- NOTE | 2025-01-18 20:00 | ED.PDOC ---
History of Present Illness HPI Comments 34-year-old, obese female presents with spouse for chief complaint of bilateral lower back and leg pain. Patient endorses on sudden, unprovoked, and atraumatic onset of pain, yesterday. Pain started out as a pinching sensation behind both of her knees and, now, starts in her lower back and radiates downward to both legs. She denies any recent falls or injuries. Patient was evaluated for symptoms at this ED and given oxycodone and prednisone shot, this morning, with no relief. Significant history for anemia and asthma. No endorsement of any current weakness, numbness, tingling, swelling, skin discoloration, shortness of breath, chest pain, or further acute symptoms at this time. Chief Complaint: Lower Extremity Time Seen by MD: 19:50 Reviewed Notes: Nurses Notes, Magneto Electrician Notes, Medications, Allergies Allergies: Coded Allergies: Sulfa Antibiotics (Verified Allergy, Unknown, 08/09/20) Home Meds Active Scripts Nitrofurantoin Monohydrate Mac (Macrobid) 100 Mg Cap, 100 MG PO BID for 5 Days, #10 CAP Prov:PALLAVI BILLINGSLEY 01/18/25 Ferrous Sulfate (FERROUS SULFATE) 325 Mg Tb, 1 TAB PO TID, #270 TAB 3 Refills Prov:PALLAVI BILLINGSLEY 01/18/25 Oxycodone W/ Acetaminophen (Percocet 5/325MG) 1 Tab Tb, 1 TAB PO QID, #20 TAB Prov:PALLAVI BILLINGSLEY 01/18/25 Capsaicin (Capsaicin) 0.025 % Cre, 0.025 % EX QID, #60 GM Prov:PALLAVI BILLINGSLEY 01/18/25 Prednisone (Prednisone) 20 Mg Tab, 50 MG PO DAILY for 3 Days, #3 MG Prov:PALLAVI BILLINGSLEY 01/18/25 Ondansetron Odt 4MG Tab (ZOFRAN PO) 4 Mg Tb, 4 MG PO TID for 3 Days, #9 TAB ODT TAB-DISSOLVE IN MOUTH, THEN SWALLOW Prov:SHARON PADILLA 09/11/24 Cephalexin (KEFLEX CAPSULE) 250 Mg Cp, 250 MG PO Q6HR for 5 Days, #20 CAP Prov:SHARON PADILLA RESIDENT 09/11/24 Multiple Vitamin (Mvi Tab) 1 Tab Tb, 1 TAB PO DAILY for 30 Days, #30 TAB Prov:PREMA RIDDLE RESIDENT 11/12/23 Ascorbic Acid (VITAMIN C TABLET) 500 Mg Tb, 500 MG PO BID for 30 Days, #60 TAB Prov:PREMA RIDDLE RESIDENT 11/12/23 Ipratropium [place] Hfa (Atrovent Hfa) 17 Mcg Aer, 17 MCG IN Q4HR PRN, #1 AER Prov:KRIS PERALTA MD 10/31/23 Albuterol Sulfate (VENTOLIN MDI) 90 Mcg Ih, 90 MCG IN Q4HR PRN, #1 INH Prov:KRIS PERALTA MD 10/31/23 Methocarbamol (Methocarbamol) 750 Mg Tab, 750 MG PO BID, #20 TAB Prov:OLIVA STANFORD 09/26/23 Information Source: Patient Mode of Arrival: Wheelchair Severity: Moderate Timing: Hours Duration: Since onset Prehospital treatment: None Past Medical History PAST MEDICAL HISTORY: Anemia, Asthma, UTI'S Surgical History: Denies all surgeries 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) Family History Family History: Reviewed,noncontributory to illness, No family hx of DM, No family hx ofKidney machelle, No family hx of Liver machelle, No family hx of Lung machelle, No family hx of Stroke, Family hx of Cancer, Family hx of heart machelle, Family hx of HTN Social History Smoker: Non-Smoker Alcohol: Occasionally Drugs: Denies Drug Use Lives In: Home Constitutional: denies: chills, diaphoresis, fatigue, fever, malaise, sweats, weakness, others EENTM: denies: blurred vision, double vision, ear bleeding, ear discharge, ear drainage, ear pain, ear ringing, eye pain, eye redness, hearing loss, mouth pain, mouth swelling, nasal discharge, nose bleeding, nose congestion, nose pain, photophobia, tearing, throat pain, throat swelling, voice changes, others Respiratory: denies: cough, hemoptysis, orthopnea, SOB at rest, shortness of breath, SOB with excertion, stridor, wheezing, others Cardiovascular: denies: chest pain, dizzy spells, diaphoresis, Dyspnea on exertion, edema, irregular heart beat, left arm pain, lightheadedness, palpitati ons, PND, syncope, others Gastrointestinal: denies: abdomen distended, abdominal pain, blood streaked bowels, constipated, diarrhea, dysphagia, difficulty swallowing, hematemesis, melena, nausea, poor appetite, poor fluid intake, rectal bleeding, rectal pain, vomiting, others Genitourinary: denies: abnormal vagina bleeding, burning, dyspareunia, dysuria, flank pain, frequency, hematuria, incontinence, pain, , vagina discharge, urgency, others Neurological: denies: dizziness, fainting, headache, left sided numbness, left sided weakness, numbness, paresthesia, pre-existing deficit, right sided numbness, right sided weakness, seizure, speech problems, tingling, tremors, weakness, others Musculoskeletal: reports: back pain, others (Bilateral leg pain); denies: gout, joint pain, joint swelling, muscle pain, muscle stiffness, neck pain Integumetry: denies: bruises, change in color, change in hair/nails, dryness, laceration, lesions, lumps, rash, wounds, others Allergic/Immunocompromised: denies: Difficulty Healing, Frequent Infections, Hives, Itching, others Hematologic/Lymphatic: denies: anemia, blood clots, easy bleeding, easy bruising, swollen glands, others Endocrine: denies: excessive hunger, excessive sweating, excessive thirst, excessive urination, flushing, intolerance to cold, intolerance to heat, unexplained weight gain, unexplained weight loss, others Psychiatric: denies: anxiety, bipolar disorder, depression, hopeless, panic disorder, schizophrenia, sleepless, suicidal, others All Other Systems: Reviewed and Negative Physical Exam General Appearance: Moderate Distress HEENT: Normal ENT Inspection, Pharynx Normal, TMs Normal Neck: Full Range of Motion, Non-Tender, Normal, Normal Inspection Respiratory: Chest Non-Tender, Lungs Clear, No Accessory Muscle Use, No Respiratory Distress, Normal Breath Sounds Cardiovascular: No Edema, No JVD, No Murmur, No Gallop, Normal Peripheral Pulses, Regular Rate/Rhythm Breast Exam: Deferred Gastrointestinal: No Organomegaly, Non Tender, No Pulsatile Mass, Normal Bowel Sounds, Soft Genitalia: Deferred Pelvic: Deferred Rectal: Deferred Extremities: No calf tenderness, Normal capillary refill, Normal inspection, Normal range of motion, Non-tender, No pedal edema Musculoskeletal : Location: Bilateral Extremity Location: Back Apperance: Limited ROM, Tenderness: Moderate Neurologic: Alert, fixed income manager II-XII nml as Tested, Motor Weakness, Normal Affect, Normal Mood, No Sensory Deficits Cerebellar Function: Normal Reflexes: Normal Skin: Dry, Normal Color, Warm Lymphatic: No Adenopathy Was a procedure done? Was a procedure done?: No Differential Dx Considerations may include: Sciatica, degenerative disc disease, bulging disc, musculoskeletal pain, fractures, sprain, strain, among others X-Ray, Labs, Meds, VS Vital Signs Date Time Temp Pulse Resp B/P (MAP) Pulse Ox O2 Delivery O2 Flow Rate FiO2 01/18/25 20:48 60 17 116/70 01/18/25 20:45 97.7 60 17 116/76 (89) 98 97.7 01/18/25 17:08 96.8 76 17 130/82 99 96.8 Current Medications Medications (Trade) Dose Ordered Sig/Neli Route Start Time Stop Time Status Last Admin Hydromorphone HCl (Dilaudid Injection) 1 mg ONCE ONCE IV 01/18/25 20:00 01/18/25 20:01 DC 01/18/25 20:48 Sodium Chloride 500 ml @ 500 mls/hr Q1H ONCE IV 01/18/25 20:00 01/18/25 20:59 DC 01/18/25 20:48 Ondansetron HCl (Zofran) 4 mg ONCE ONCE IV 01/18/25 20:00 01/18/25 20:01 DC 01/18/25 20:48 PROCEDURE(s): LS2CT - LS SPINE WO CONTRAST IMPRESSION: No significant abnormality. The patient is still having pain The patient was given Dilaudid 1 mg IV push The patient was given Zofran 4 mg IV push The patient was given normal saline at 500 cc bolus The patient is being admitted with a diagnosis of intractable back pain and will be admitted at this time Images Reviewed?: Images reviewed and evaluated by me Time of 1ST Reevaluation: 20:20 Reevaluation 1ST: Unchanged Patient Education/Counseling: Diagnosis, Treatment, Prognosis Family Education/Counseling: Diagnosis, Treatment, Prognosis SEPSIS Sepsis Screen Date sepsis recognized/suspect: Jan 18, 2025 Time Sepsis recognized/suspect: 1709 Recent Procedure: No On Antibiotic Therapy: No Respiratory Rate >20: No Heart Rate >90: No Temp<36 C (96.8 F) or >38.3 C: No SBP <90 or MAP <65 mmHG: No New Acute Mental Status Change: No Is the patient on CPAP, BIPAP,: No Physician Orders Heplock Iv (01/18/25 19:54) Ls Spine Wo Contrast (01/18/25 19:54) Vital Signs Date Time Temp Pulse Resp B/P (MAP) Pulse Ox O2 Delivery O2 Flow Rate FiO2 01/18/25 20:48 60 17 116/70 01/18/25 20:45 97.7 60 17 116/76 (89) 98 97.7 01/18/25 17:08 96.8 76 17 130/82 99 96.8 Medications Medications Dose Ordered Sig/Neli Route Start Time Stop Time Status Last Admin Dose Admin Hydromorphone HCl 1 mg ONCE ONCE IV 01/18/25 20:00 01/18/25 20:01 DC 01/18/25 20:48 Ondansetron HCl 4 mg ONCE ONCE IV 01/18/25 20:00 01/18/25 20:01 DC 01/18/25 20:48 Sodium Chloride 500 ml @ 500 mls/hr Q1H ONCE IV 01/18/25 20:00 01/18/25 20:59 DC 01/18/25 20:48 Departure 1 Departure Time of Disposition: 21:24 Impression: Primary Impression: Intractable back pain Disposition: ADMITTED INPATIENT Admit to: Med Surg Condition: Fair Critical Care Note Critical Care Time?: No Stability Stability form required: Yes Unstable for transfer: ED Physician Assesment (Clinical assesment) Heart Score Heart Score: Heart Score Response (Comments) Value History N/A 0 EKG N/A 0 Age N/A 0 Risk Factors N/A 0 Troponin N/A 0 Total 0 I personally scribed for DENISE SERRANO MD ([email or web address]) on 01/18/25 at 20:00. Electronically submitted by Eliot Hidalgo ([email or web address]). I personally scribed for DENISE SERRANO MD ([email or web address]) on 01/18/25 at 21:22. Electronically submitted by Eliot Hidalgo ([email or web address]). DENISE SERRANO MD Jan 18, 2025 20:00
[2025-01-18] MEDS: SODIUM CHLORIDE 0.9% 500 ML IV ONE (20:48)
[2025-01-18] MEDS: HYDROmorphone HCL 2 MG/ML VL/or syr IV ONE (20:48)
[2025-01-18] MEDS: ONDANSETRON HCL 4 MG/2 ML VIAL IV ONE (20:48)
--- NOTE | 2025-01-18 20:59 | DVH ---
EXAM: CT LS SPINE WO CONTRAST HISTORY: pain COMPARISON: XY LUMBAR SPINE 3 VIEW on DOS: 01/18/25, XY LUMBAR SPINE 3 VIEW on DOS: 09/26/23 CTDIvol 38.94 mGy, DLP 1447.65 mGy*cm. TECHNIQUE: Multiple axial CT images of the spine were obtained using bone algorithm. Axial and coronal reformatting was done. Bone and soft tissue windows were reviewed. FINDINGS: No evidence of definite acute fracture, spinal dislocation, or significant appearing acute subluxation is seen. Disc spaces are fairly well-maintained. No obvious large focal disc herniation or significant spinal stenosis. IMPRESSION: No significant abnormality.
--- NOTE | 2025-01-18 21:52 | DVHHPRES ---
History of Present Illness Resident Creating Document: KAYLA KHOURY RESIDENT History of Present Illness Dolores Segovia, 34-year-old female with a previous history of borderline lupus?, (antibodies yet to be done), chronic anemia, recent asymptomatic UTI, chronic back pain presented to the ER with the complaints of severe back pain radiating to bilateral flanks and lower extremities. She reports having bilateral medial knee pain with pinching sensations. She denies having any history of kidney stones. She does not have any fever, shortness of breath, chest pain or urinary symptoms. However she reports having mild chest tightness. She reports oxycodone did not relieve her back pain. In the ER she got Dilaudid which significantly improved her pain. She had her COVID 19 vaccine recently, she did not have any flu vaccines yet. Past medical history: As above Past surgical history: Partial laparoscopic hysterectomy to remove Essure operations examiner history: For normal vaginal delivery. Menstrual history: LMP: 7 days ago Home medications: Zepbound, Zofran, herbal medicine, iron sulfate, vitamin-D Smoking: Occasionally Alcohol: occasionally Drugs: Never Family history: Diabetes, hypertension in father, father of heart attack. Review of Systems Allergies: Coded Allergies: Sulfa Antibiotics (Verified Allergy, Unknown, 08/09/20) Exam Vital Signs Vital Signs Date Time Temp Pulse Resp B/P (MAP) Pulse Ox O2 Delivery O2 Flow Rate FiO2 01/18/25 21:37 65 17 112/82 01/18/25 20:45 97.7 98 97.7 Exam Pt is lying on bed General Appearance: Alert, Oriented X3, Cooperative, Mild distress HEENT: Atraumatic, Mucous membranes moist/pink Respiratory: Clear to auscultation, Normal air movement, No added sounds Cardiovascular: Regular rate, Normal S1, Normal S2, No murmurs Abdominal/ : Active bowel sounds, Soft, no distention, no tenderness Extremities: No edema, Normal pulses, No tenderness/swelling Musculoskeletal: Paraspinal tenderness Skin: No Significant rash, except past surgical scars Neuro: Normal speech, sensorimotor deficits none Psych/Mental Status: Mental status NL, Mood NL Nurse was there as horse doctor during examination SEPSIS Sepsis Screen Date sepsis recognized/suspect: Jan 18, 2025 Time Sepsis recognized/suspect: 1709 Recent Procedure: No On Antibiotic Therapy: No Respiratory Rate >20: No Heart Rate >90: No Temp<36 C (96.8 F) or >38.3 C: No SBP <90 or MAP <65 mmHG: No New Acute Mental Status Change: No Is the patient on CPAP, BIPAP,: No Physician Orders Heplock Iv (01/18/25 19:54) Ls Spine Wo Contrast (01/18/25 19:54) Admit (01/18/25 21:43) Notify Md Of Changes From Base (01/18/25 21:43) Chest Xray 1 View (01/18/25 21:43) Electrocardigram (01/18/25 21:43) Vital Signs Date Time Temp Pulse Resp B/P (MAP) Pulse Ox O2 Delivery O2 Flow Rate FiO2 01/18/25 21:37 65 17 112/82 01/18/25 20:48 60 17 116/70 01/18/25 20:45 97.7 60 17 116/76 (89) 98 97.7 01/18/25 17:08 96.8 76 17 130/82 99 96.8 Medications Medications Dose Ordered Sig/Neli Route Start Time Stop Time Status Last Admin Dose Admin Hydromorphone HCl 1 mg ONCE ONCE IV 01/18/25 20:00 01/18/25 20:01 DC 01/18/25 20:48 1 MG Ondansetron HCl 4 mg ONCE ONCE IV 01/18/25 20:00 01/18/25 20:01 DC 01/18/25 20:48 4 MG Sodium Chloride 500 ml @ 500 mls/hr Q1H ONCE IV 01/18/25 20:00 01/18/25 20:59 DC 01/18/25 20:48 500 MLS/HR Assessment/Plan Assessment/Plan Chronic back pain Nonobstructing right kidney stones Acute complicated UTI Abdomen pelvis CT: Few tiny echogenic foci within the right kidney likely representing nonobstructing calculi. No hydronephrosis or other clear cause for symptoms. CT of the lumbosacral spine without contrast: No evidence of definite acute fracture, spinal dislocation, or significant appearing acute subluxation is seen.Disc spaces are fairly well-maintained. No obvious large focal disc herniation or significant spinal stenosis. CXR: Normal --IV ceftriaxone -IV Dilaudid -tamsulosin Chronic microcytic hypochromic anemia -hemoglobin 9.1 -iron panel, ferritin ordered -monitor H&H and active bleeding GI prophylaxis: Pantoprazole DVT prophylaxis: Held due to anemia, patient is ambulatory Diet: Regular Goals of care discussed with the patient for more than 27 minutes: Full code status Case discussed with Dr. Hernandez, patient and RN Plan discussed with: Patient, Other (RN) My Orders Orders - KAYLA KHOURY RESIDENT Procedure Category Date Status Time Admit ADMIT 01/18/25 Transmitted 21:43 Notify Md Of Changes HAMMAD 01/18/25 In Process From Base 21:43 Chest Xray 1 View XY 01/18/25 Logged 21:43 Electrocardigram EKG 01/18/25 Logged 21:43 Date of Service: Jan 19, 2025 Billing Provider: STAR HERNANDEZ MD Common Visit Codes: [id number] INP/OBS CARE (HIGH) Secondary Visit Codes: [id number] CARE PLAN 30 MINUTES KAYLA KHOURY Jan 18, 2025 21:52
[2025-01-18 22:50] LABS: Hematocrit 29.6 % (36.0-46.0); Hemoglobin 9.1 g/dL (12.2-16.2); Mean Corpuscular Hemoglobin 18.9 pg (28.0-32.0); Mean Corpuscular Volume 61.7 fL (80.0-100.0); Nucleated Red Blood Cells % 0.1 %
[2025-01-18 23:00] LABS: Alanine Aminotransferase < 9 U/L (7-40); Albumin 4.5 g/dL (3.2-4.8); Alkaline Phosphatase 68 U/L (46-116); Anion Gap 10 (5-15); BUN/Creatinine Ratio 19.3 (10.0-20.0); Bilirubin, Total 0.5 mg/dL (0.2-1.0); Blood Urea Nitrogen 11 mg/dL (9-23); Calcium 8.9 mg/dL (8.7-10.4); Carbon Dioxide 25 mmol/L (20-31); Chloride 102 mmol/L (98-107); Glucose 95 mg/dL (74-106); Lipase 27 U/L (12-53); Potassium 3.9 mmol/L (3.5-5.1); Sodium 137 mmol/L (136-145); Total Protein 7.8 g/dL (5.7-8.2)
--- NOTE | 2025-01-18 23:02 | DVH ---
CHEST RADIOGRAPH Indication: Chest pressure Technique: Single frontal view of the chest was obtained COMPARISON: CT CT ANGIO CHEST CONTRAST on DOS: 11/11/23, XY CHEST XRAY 1 VIEW on DOS: 10/27/23, CHEST PORTABLE on DOS: 08/09/20, CHEST XRAY 1 VIEW on DOS: 01/03/20 FINDINGS: Lungs and pleural spaces are clear. Cardiac silhouette and [place] are within normal limits. Bones and soft tissues demonstrate no significant abnormality. IMPRESSION: No acute disease.
--- NOTE | 2025-01-18 23:32 | DVH ---
INDICATION: bilateral flank pain TECHNIQUE: Multiple real-time sonographic images of the kidneys and bladder were obtained. COMPARISON: None FINDINGS: RIGHT kidney measures 12.3 cm in length. No hydronephrosis. Few equivocal tiny nonobstructing calculi measuring up to 2 mm. LEFT kidney measures 13.5 cm in length. No stones or hydronephrosis. No large intraluminal masses are seen in the bladder. IMPRESSION: Few tiny echogenic foci within the right kidney likely representing nonobstructing calculi. No hydronephrosis or other clear cause for symptoms.
[2025-01-19 00:50] LABS: COVID19 ANTIGEN SOFIA FIA NEGATIVE (NEGATIVE)
[2025-01-19 01:10] LABS: Iron 22.0 ug/dL (50-170)
[2025-01-19 01:12] LABS: Total Iron Binding Capacity 387.0 ug/dL (250-425)
[2025-01-19] MEDS ORDERED: TIRZ5INJ2 SC (02:07)
[2025-01-19] MEDS ORDERED: FAMO20TA10 PO (02:07)
[2025-01-19] MEDS ORDERED: CHOL100029 PO (02:07)
[2025-01-19 02:08] VITALS: PULSE 54; RESP 18; O2SAT 100
[2025-01-19 02:19] LABS: Urine Protein, UAD Negative (Negative)
[2025-01-19] MEDS: HYDROcodone-ACET 5/325MG TAB PO PRN (02:37)
[2025-01-19 05:00] VITALS: BP 121/69; PULSE 58; RESP 16; TEMP 97; O2SAT 98
[2025-01-19] MEDS: PANTOPRAZOLE 40 MG TAB PO SCH (05:08)
[2025-01-19 09:00] VITALS: BP 106/74; PULSE 78; RESP 20; O2SAT 100
--- NOTE | 2025-01-19 11:09 | DVHPN2 ---
Progress Note Date Seen: Jan 19, 2025 Medical Necessity Reason Pt with a Central, PICC or Fol: No Subjective Patient reports: No new complaints Review of Systems: HEENT:Normal, CVS:Normal, RESPIRATORY:Normal, GI:Normal, :Normal, MSK:Normal, NEURO:Normal Objective vital signs Vital Sign Date Time Temp Pulse Resp B/P (MAP) Pulse Ox O2 Delivery O2 Flow Rate FiO2 01/19/25 07:50 Room Air* 0 21 01/19/25 05:00 97.0 58 16 121/69 (86) 98 97.0 Total Intake and Output 01/18/25 01/18/25 01/19/25 15:00 23:00 07:00 Intake Total 200 ml Balance 200 ml medications Current Medications Medications Dose Ordered Sig/Neli Route Start Time Stop Time Status Last Admin Dose Admin Tamsulosin HCl 0.4 mg QPM PO 01/19/25 18:00 Pantoprazole Sodium 40 mg DAILY@0600 PO 01/19/25 06:00 01/19/25 05:08 40 MG Acetaminophen/ Hydrocodone Bitart 1 tab Q4HPRN PRN PO 01/19/25 02:30 01/19/25 08:26 1 TAB Ceftriaxone Sodium 50 ml @ 100 mls/hr DAILY@09 IV 01/19/25 05:00 01/19/25 05:08 100 MLS/HR Iron Sucrose 110 ml @ 110 mls/hr DAILY@1200 IV 01/19/25 12:00 01/23/25 11:59 Examination: GENERAL:Normal, HEENT:Normal, NECK:Normal, LUNGS:Normal, CVS:Normal, ABDOMEN:Normal, ABDOMEN:Abnormal (lower abd tendernes), MSK:Normal, SKIN:Normal, NEURO:Normal, :Normal laboratory and microbiology Laboratory Tests 01/18/25 22:27 Test 01/18/25 22:27 Range/Units Serum Glucose 95 74-106 mg/dL Problem List/Assessment/Plan Problem List/Assessment/Plan #1 abd pain: ct abdomen, pelvic usg #2 uti: culture, iv rocephin #3 gallstones #4 anemia #5 obesity Plan discussed with: Patient My Orders My Orders Orders - CARLO ART MD Procedure Category Date Status Time Complete Blood Count LAB 01/19/25 Logged 11:00 Comprehensive LAB 01/19/25 Logged Metabolic Panel 11:00 Ct Ab Pel Wo Con-No CT 01/19/25 Logged Oral Or Iv 11:00 Pelvic US 01/19/25 Logged 11:00 Date of Service: Jan 19, 2025 Billing Provider: CARLO ART MD Common Visit Codes: [id number] INP/OBS CARE(HIGH) CARLO ART MD Jan 19, 2025 11:09
[2025-01-19] MEDS ORDERED: MORPHINE SULFATE INJ 2 MG/ml SYRG IV PRN (11:15)
[2025-01-19] MEDS: KETOROLAC TROMETH 30 MG/ML 1ML VIAL IV ONE (11:49)
[2025-01-19] MEDS: IRON SUCROSE COMPLEX 110 ML IV SCH (12:18)
--- NOTE | 2025-01-19 12:39 | DVH ---
Indication: ABD PAIN Technique: CT axial images of the abdomen and pelvis are obtained without contrast. Coronal and sagittal reformats were obtained. Radiation Dose Information: CTDI volume is 19.1 mGy. Dose-length product is 1033.83 mGy*cm Comparison: None FINDINGS: There is limited interpretation of the abdomen and pelvis without administration of intravenous contrast. Lung bases demonstrate no pleural effusion. Adrenal glands, spleen, pancreas liver unremarkable in shape. No CT evidence for cholelithiasis. Kidneys demonstrate no hydronephrosis / nephrolithiasis. Stomach partially distended. Small bowel loops are normal in caliber. Moderate volume stool throughout the colon. Normal appendix. Left-sided IVC. This crosses over at the diaphragmatic hiatus.m Bladder partially distended. 1.6 cm left ovarian cystic lesion. No inguinal lymphadenopathy. No aggressive osseous process. Scattered mesenteric lymph nodes up to 1 cm. IMPRESSION: Limited evaluation without contrast. Scattered mesenteric lymph nodes up to 1 cm may represent sequela of mesenteric adenitis. Moderate volume stool in the colon. Left ovarian cystic lesion measuring 1.6 cm, can be further evaluated pelvic ultrasound. Other findings as described.
[2025-01-19 12:43] LABS: Hematocrit 29.8 % (36.0-46.0); Nucleated Red Blood Cells % 0.0 %
[2025-01-19 12:45] LABS: Hemoglobin 9.0 g/dL (12.2-16.2); Mean Corpuscular Hemoglobin 18.7 pg (28.0-32.0); Mean Corpuscular Volume 62.1 fL (80.0-100.0)
[2025-01-19 13:00] LABS: Alanine Aminotransferase 13 U/L (7-40); Albumin 4.2 g/dL (3.2-4.8); Alkaline Phosphatase 64 U/L (46-116); Anion Gap 10 (5-15); BUN/Creatinine Ratio 11.0 (10.0-20.0); Bilirubin, Total 0.4 mg/dL (0.2-1.0); Calcium 8.7 mg/dL (8.7-10.4); Carbon Dioxide 26 mmol/L (20-31); Chloride 103 mmol/L (98-107); Glucose 86 mg/dL (74-106); Potassium 3.8 mmol/L (3.5-5.1); Sodium 139 mmol/L (136-145); Total Protein 7.5 g/dL (5.7-8.2)
[2025-01-19 13:05] LABS: Blood Urea Nitrogen 8 mg/dL (9-23)
--- NOTE | 2025-01-19 13:09 | DVH ---
INDICATION: ABD PAIN TECHNIQUE: Multiple real-time grayscale transabdominal sonographic images along with color and duplex Doppler of the uterus and ovaries were obtained. COMPARISON: None FINDINGS: The uterus measures 12 x 6.47 x 4.28 cm. The endometrial stripe measures 0.12 cm. In the lower uterine segment is a solid mass measuring 3.63 x 3.79 by 3.25 cm may represent a fibroid. The right ovary not visualized The left ovary measures 4.93 x 2.1 9 x 3.82 cm. Left ovarian volume is 21.62 ML. cm. In the left ovary is an anechoic nodule measuring 1.99 by 2.02 x 2.3 cm may represent a small follicle. Subsequent color and duplex Doppler interrogation of the ovaries demonstrated symmetric vascular flow to both ovaries, though this does not exclude the possibility of torsion due to the dual blood supply. IMPRESSION: 1. Small mass in the lower uterine segment measuring 3.63 by 3.79 x 3.25 cm may represent a fibroid. Small follicle left ovary measuring 2 cm.
[2025-01-19 17:00] VITALS: BP 96/57; PULSE 63; RESP 17; TEMP 98; O2SAT 95
[2025-01-19] MEDS ORDERED: TAMSULOSIN HYDROCHLORIDE 0.4 MG CAP PO SCH (18:00)
[2025-01-19] MEDS: KETOROLAC TROMETH 30 MG/ML 1ML VIAL IV PRN (18:01)
--- NOTE | 2025-01-19 19:10 | DVH ---
BILATERAL LOWER EXTREMITY VENOUS DUPLEX REASON FOR EXAMINATION: Bilateral lower extremity pain and edema. COMPARISON: US BILAT LOWER DVT on DOS: 11/12/23 TECHNIQUE: Using real-time freeze-frame technique with a high-frequency transducer, multiple longitudinal and transverse sections were obtained. Simultaneous color flow and spectral Doppler imaging was performed. The deep veins from the popliteal fossa to the groin were evaluated. FINDINGS: There is good visualization of the deep venous system with no intraluminal filling defects identified. Normal venous compressibility is seen and there is flow augmentation. Color flow Doppler imaging is unremarkable. IMPRESSION: NO EVIDENCE OF FEMOROPOPLITEAL DEEP VENOUS THROMBOSIS.
[2025-01-19 20:00] VITALS: PULSE 67; RESP 18
[2025-01-19 20:42] VITALS: BP 97/53; PULSE 67; RESP 18; TEMP 97.3; O2SAT 95
[2025-01-20 04:17] LABS: Chloride 102 mmol/L (98-107); Sodium 139 mmol/L (136-145)
[2025-01-20 04:18] LABS: Anion Gap 10 (5-15); Carbon Dioxide 27 mmol/L (20-31); Hematocrit 27.1 % (36.0-46.0); Hemoglobin 8.3 g/dL (12.2-16.2); Mean Corpuscular Hemoglobin 18.9 pg (28.0-32.0); Mean Corpuscular Volume 61.6 fL (80.0-100.0); Nucleated Red Blood Cells % 0.1 %
[2025-01-20 04:19] LABS: Potassium 3.4 mmol/L (3.5-5.1)
[2025-01-20 04:21] LABS: Calcium 8.2 mg/dL (8.7-10.4)
[2025-01-20 04:23] LABS: INR 1.05 (0.9-1.15); Partial Thromboplastin Time 28.5 SEC (24.5-34.5); Prothrombin Time 11.1 sec (9.3-11.8)
[2025-01-20 04:24] LABS: BUN/Creatinine Ratio 16.4 (10.0-20.0); Glucose 81 mg/dL (74-106)
[2025-01-20 04:25] LABS: Blood Urea Nitrogen 9 mg/dL (9-23)
[2025-01-20 05:00] VITALS: BP 112/72; PULSE 68; RESP 17; TEMP 98; O2SAT 98
[2025-01-20] MEDS: PANTOPRAZOLE 40 MG/10 ML VIAL INJ IV SCH (08:39)
[2025-01-20 09:00] VITALS: BP 95/89; PULSE 60; RESP 16; TEMP 97.7; O2SAT 94
--- NOTE | 2025-01-20 11:34 | DVHPN2 ---
Progress Note Date Seen: Jan 20, 2025 Medical Necessity Reason Pt with a Central, PICC or Fol: No Subjective Patient reports: No new complaints Review of Systems: HEENT:Normal, CVS:Normal, RESPIRATORY:Normal, GI:Normal, :Normal, MSK:Normal, NEURO:Normal Objective vital signs Vital Sign Date Time Temp Pulse Resp B/P (MAP) Pulse Ox O2 Delivery O2 Flow Rate FiO2 01/20/25 09:00 97.7 60 16 95/89 (91) 94 97.7 01/19/25 20:00 Room Air* 0 21 Total Intake and Output 01/19/25 01/19/25 01/20/25 15:00 23:00 07:00 Intake Total 110 ml 900 ml 450 ml Output Total 600 ml Balance 110 ml 300 ml 450 ml medications Current Medications Medications Dose Ordered Sig/Neli Route Start Time Stop Time Status Last Admin Dose Admin Acetaminophen/ Hydrocodone Bitart 1 tab Q4HPRN PRN PO 01/19/25 02:30 01/20/25 04:11 1 TAB Ceftriaxone Sodium 50 ml @ 100 mls/hr DAILY@09 IV 01/19/25 05:00 01/20/25 08:39 100 MLS/HR Iron Sucrose 110 ml @ 110 mls/hr DAILY@1200 IV 01/19/25 12:00 01/23/25 11:59 01/19/25 12:18 110 MLS/HR Pantoprazole Sodium 40 mg DAILY IV 01/20/25 10:00 01/20/25 08:39 40 MG Ketorolac Tromethamine 15 mg Q6HPRN PRN IV 01/19/25 17:15 01/24/25 17:14 01/20/25 10:36 15 MG Morphine Sulfate 2 mg Q4HPRN PRN IV 01/19/25 11:15 Metronidazole 100 ml @ 100 mls/hr Q8HR IV 01/19/25 14:00 01/20/25 05:02 100 MLS/HR Examination: GENERAL:Normal, HEENT:Normal, NECK:Normal, LUNGS:Normal, CVS:Normal, ABDOMEN:Normal, MSK:Normal, SKIN:Normal, NEURO:Normal, :Normal laboratory and microbiology Laboratory Tests 01/20/25 03:50 Test 01/20/25 03:50 Range/Units Serum Glucose 81 74-106 mg/dL Problem List/Assessment/Plan Problem List/Assessment/Plan #1 abd pain: likely due to uti #2 uti: culture, iv rocephin #3 gallstones #4 anemia; iv iron #5 obesity Plan discussed with: Patient My Orders My Orders Orders - CARLO ART MD Procedure Category Date Status Time Bilat Lower Dvt US 01/19/25 Resulted 18:00 Potassium Er Tablet PHA 01/20/25 Verified (Klor-Con Tablet) 11:30 Polyethylene Glycol PHA 01/20/25 Verified 17g Powder (Miralax 11:30 Basic Metabolic Panel LAB 01/21/25 Verified 06:00 Complete Blood Count LAB 01/21/25 Verified 06:00 Date of Service: Jan 20, 2025 Billing Provider: CARLO ART MD Common Visit Codes: [id number] INP/OBS CARE(HIGH) CARLO ART MD Jan 20, 2025 11:34
[2025-01-20] MEDS: POTASSIUM CHL 20 Meq TABLET PO ONE (12:59)
[2025-01-20] MEDS: POLYETHYLENE GLYCOL 17 GM PWDR PO ONE (12:59)
[2025-01-20 13:00] VITALS: BP 120/65; PULSE 68; RESP 18; TEMP 98.4; O2SAT 97
[2025-01-20 17:00] VITALS: BP 102/60; PULSE 68; RESP 18; TEMP 97.6; O2SAT 97
[2025-01-20 21:00] VITALS: BP 103/65; PULSE 66; RESP 17; TEMP 97.7; O2SAT 95
[2025-01-21 01:00] VITALS: BP 91/57; PULSE 69; RESP 18; TEMP 97.8; O2SAT 98
[2025-01-21 05:00] VITALS: BP 117/88; PULSE 92; RESP 18; TEMP 97.7; O2SAT 96
[2025-01-21 06:45] LABS: Hematocrit 32.4 % (36.0-46.0); Hemoglobin 9.9 g/dL (12.2-16.2); Mean Corpuscular Hemoglobin 19.1 pg (28.0-32.0); Mean Corpuscular Volume 62.4 fL (80.0-100.0); Nucleated Red Blood Cells % 0.1 %
[2025-01-21 06:52] LABS: Anion Gap 10 (5-15); Carbon Dioxide 28 mmol/L (20-31); Chloride 102 mmol/L (98-107); Potassium 3.7 mmol/L (3.5-5.1); Sodium 140 mmol/L (136-145)
[2025-01-21 06:53] LABS: Calcium 8.8 mg/dL (8.7-10.4)
[2025-01-21 06:58] LABS: Glucose 97 mg/dL (74-106)
[2025-01-21 07:02] LABS: BUN/Creatinine Ratio 9.8 (10.0-20.0); Blood Urea Nitrogen < 5 mg/dL (9-23)
[2025-01-21 08:54] VITALS: BP 113/73; PULSE 71; RESP 18; TEMP 98; O2SAT 99
[2025-01-21] MEDS ORDERED: CIPR-173 PO (10:30)
[2025-01-21] MEDS ORDERED: HYDR-4902 PO (10:30)
--- NOTE | 2025-01-21 10:33 | DVHPN2 ---
Reviewed: Care Plan, H&P, Labs, Medications, Previous Orders, Radiology Changes from previous H/P or p: No Changes Objective Vitals Vital Signs Date Time Temp Pulse Resp B/P (MAP) Pulse Ox O2 Delivery O2 Flow Rate FiO2 01/21/25 08:54 98.0 71 18 113/73 (86) 99 98.0 01/20/25 20:00 Room Air* 0 21 Intake/Output Intake and Output 01/21/25 07:00 Intake Total 2300 ml Balance 2300 ml Intake Oral 2250 ml IV Total 50 ml # Voids 12 Medications Current Medications Medications Dose Ordered Sig/Neli Route Start Time Stop Time Status Last Admin Dose Admin Acetaminophen/ Hydrocodone Bitart 1 tab Q4HPRN PRN PO 01/19/25 02:30 01/21/25 08:33 1 TAB Ceftriaxone Sodium 50 ml @ 100 mls/hr DAILY@09 IV 01/19/25 05:00 01/21/25 08:25 100 MLS/HR Iron Sucrose 110 ml @ 110 mls/hr DAILY@1200 IV 01/19/25 12:00 01/23/25 11:59 01/20/25 12:54 110 MLS/HR Pantoprazole Sodium 40 mg DAILY IV 01/20/25 10:00 01/21/25 08:25 40 MG Ketorolac Tromethamine 15 mg Q6HPRN PRN IV 01/19/25 17:15 01/24/25 17:14 01/20/25 10:36 15 MG Morphine Sulfate 2 mg Q4HPRN PRN IV 01/19/25 11:15 Laboratory Results Laboratory Tests 01/21/25 06:05 Chemistry Test 01/21/25 06:05 Calcium Level 8.8 mg/dL (8.7-10.4) Urinalysis Test 01/19/25 02:07 Urine Color Light-yellow (Yellow) Urine Clarity Clear (Clear) Urine pH 6.0 (5.0-9.0) Urine Specific [place] 1.019 (1.001-1.035) Urine Protein Negative (Negative) Urine Ketones 2+ (Negative) H Urine Blood Negative /uL (Negative) Urine Nitrite Negative (Negative) Urine Bilirubin Negative (Negative) Urine Urobilinogen Normal mg/dL (Negative) Urine Leukocyte Esterase 3+ /uL (Negative) Urine RBC 1 /hpf (0 - 4) Urine Microscopic WBC 12 /HPF (0-5) H Urine Squamous Epithelial Cells Few /hpf (<5) Urine Bacteria None seen /hpf (None Seen) Urine Mucus Few (None Seen) Urine Glucose Normal mg/dL (Normal) Microbiology Microbiology Date/Time Source Procedure Growth Status 01/19/25 02:07 Voided Urine Urine Culture - Preliminary Resulted Labs and/or images reviewed: Labs reviewed by me, Image(s) reviewed by me Assessment/Plan Assessment/Plan Covering for Dr. Alexander #1 abd pain: likely due to uti #2 uti: culture, iv rocephin #3 gallstones #4 anemia; iv iron #5 obesity #6 3 cm x 3 cm x 3 cm uterine fibroids: Outpatient follow up Plan discussed with: Patient Date of Service: Jan 21, 2025 Billing Provider: KRIS PERALTA MD Common Visit Codes: [id number] INP/OBS CARE(HIGH) KRIS PERALTA MD Jan 21, 2025 10:33
--- NOTE | 2025-01-21 10:39 | DVHDS2 ---
Discharge Summary Date of Admission Jan 18, 2025 at 21:43 Date of Discharge: Jan 21, 2025 Admitting Diagnosis Abdominal pain Wounds: None Labs/Diagnostic Data: Laboratory Results Test 01/21/25 06:05 01/20/25 03:50 01/19/25 12:26 01/19/25 02:07 White Blood Count 4.9 10^3/uL (4.4-10.8) Red Blood Count 5.19 10^6/uL (4.0-5.20) Hemoglobin 9.9 g/dL (12.2-16.2) Hematocrit 32.4 % (36.0-46.0) Mean Corpuscular Volume 62.4 fL (80.0-100.0) Mean Corpuscular Hemoglobin 19.1 pg (28.0-32.0) Mean Corpuscular Hemoglobin Concent 30.6 g/dL (32.0-36.0) Red Cell Distribution Width 18.7 % (11.8-14.3) Platelet Count 187 10^3/uL (140-450) Mean Platelet Volume 9.0 fL (6.9-10.8) Neutrophils (%) (Auto) 54.4 % (37.0-80.0) Lymphocytes (%) (Auto) 39.8 % (10.0-50.0) Monocytes (%) (Auto) 4.5 % (0.0-12.0) Eosinophils (%) (Auto) 0.7 % (0.0-7.0) Basophils (%) (Auto) 0.6 % (0.0-2.0) Neutrophils # (Auto) 2.7 10 ^3/uL (1.6-8.6) Lymphocytes # (Auto) 1.9 10 ^3/uL (0.4-5.4) Monocytes # (Auto) 0.2 10 ^3/uL (0-1.3) Eosinophils # (Auto) 0 10 ^3/uL (0-0.8) Basophils # (Auto) 0 10 ^3/uL (0-0.2) Nucleated Red Blood Cells 0.1 % Sodium Level 140 mmol/L (136-145) Potassium Level 3.7 mmol/L (3.5-5.1) Chloride Level 102 mmol/L (98-107) Carbon Dioxide Level 28 mmol/L (20-31) Anion Gap 10 (5-15) Blood Urea Nitrogen < 5 mg/dL (9-23) Creatinine 0.51 mg/dL (0.550-1.02) Glomerular Filtration Rate Calc 126 mL/min (>90) BUN/Creatinine Ratio 9.8 (10.0-20.0) Serum Glucose 97 mg/dL (74-106) Calcium Level 8.8 mg/dL (8.7-10.4) Prothrombin Time 11.1 sec (9.3-11.8) Prothrombin Time INR 1.05 (0.9-1.15) Activated Partial Thromboplast Time 28.5 SEC (24.5-34.5) Total Bilirubin 0.4 mg/dL (0.2-1.0) Aspartate Amino Transferase (AST) 16 U/L (13-40) Alanine Aminotransferase (ALT) 13 U/L (7-40) Alkaline Phosphatase 64 U/L (46-116) Total Protein 7.5 g/dL (5.7-8.2) Albumin 4.2 g/dL (3.2-4.8) Urine Color Light-yellow (Yellow) Urine Clarity Clear (Clear) Urine pH 6.0 (5.0-9.0) Urine Specific [place] 1.019 (1.001-1.035) Urine Protein Negative (Negative) Urine Ketones 2+ (Negative) Urine Blood Negative /uL (Negative) Urine Nitrite Negative (Negative) Urine Bilirubin Negative (Negative) Urine Urobilinogen Normal mg/dL (Negative) Urine Leukocyte Esterase 3+ /uL (Negative) Urine RBC 1 /hpf (0 - 4) Urine Microscopic WBC 12 /HPF (0-5) Urine Squamous Epithelial Cells Few /hpf (<5) Urine Bacteria None seen /hpf (None Seen) Urine Mucus Few (None Seen) Urine Glucose Normal mg/dL (Normal) Test 01/18/25 23:28 01/18/25 22:27 Influenza Type A Antigen Negative (Negative) Influenza Type B Antigen Negative (Negative) SARS-CoV-2 Antigen (Rapid) Negative (NEGATIVE) Lactic Acid Level 0.9 mmol/L (0.4-2.0) Iron Level 22 ug/dL (50-170) Total Iron Binding Capacity 387 ug/dL (250-425) Percent Iron Saturation 5.7 % (15-50) Ferritin 5.1 ng/mL (10-291) Lipase 27 U/L (12-53) Other Laboratory Tests 01/21/25 06:05 Brief Hx & Hospital Course: Morbidly obese female with a history of gallstones and chronic anemia came in for abdominal pain found to have a UTI treated with the IV Rocephin urine cultures still pending patient was given IV iron for anemia . Patient complained of low back pain LS spine CT is negative. DVT ruled out. Found to have 3 cm by 3 cm x 3 cm uterine fibroids advised outpatient follow up with the environmental health and safety manager. Patient feels better afebrile with less pain and wants to be discharged home today advised to follow up with the primary Dr for final urine culture report. Consults/Reason for consult None Operations or Procedures CT abdomen pelvis without contrast Uterine ultrasound CT LS spine Venous ultrasound Condition at Discharge: Fair Final Diagnosis/Problems List #1 abd pain: likely due to uti #2 uti: culture, iv rocephin #3 gallstones #4 anemia; iv iron #5 obesity #6 3 cm x 3 cm x 3 cm uterine fibroids: Outpatient follow up Discharge Disposition: Home Discharge Instruct/Medications Diet: Regular Activity: Light activity Follow Up/Referral: Follow up with environmental health and safety manager regarding uterine fibroids through your primary dr Follow up with your primary Dr for final urine culture result Medications: Cipro [place] Transmitted to pharmacy Scheduled Ciprofloxacin Hcl (Cipro), 1 TAB PO BID Famotidine (Pepcid Tablet), 1 TAB PO BID, (Reported) Ferrous Sulfate (Ferrous Sulfate), 1 TAB PO TID Ondansetron Odt 4MG Tab (Zofran Po), 4 MG PO TID Scheduled PRN Hydrocodone-Acetaminophen (Hydrocodone Bitartrate/AC 5-325 mg), 1 TAB PO QID PRN Miscellaneous Medications Cholecalciferol (Vitamin D), 1,000 UNIT PO, (Reported) Tirzepatide (Zepbound), 5 MG SC, (Reported) Discharge Statement: "Patient was advised to return to the ER or call 911 if any headaches, dizziness, shortness of breath, chest pain, abdominal pain, bleeding, fevers, or worsening of medical condition. Patient was counseled about treatment plan, medications, possible side effects, patientverbalized understanding. All questions were answered to the best of my ability. This discharge took greater then 30 minutes in planning, reviewing documentation, counseling the patient, and discussing with other team members." ASSESSMENT ASSESSMENT Hospital Course Improved Assessment #1 abd pain: likely due to uti #2 uti: culture, iv rocephin #3 gallstones #4 anemia; iv iron #5 obesity #6 3 cm x 3 cm x 3 cm uterine fibroids: Outpatient follow up Date of Service: Jan 21, 2025 Billing Provider: KRIS PERALTA MD Common Visit Codes: [id number]/OBS DISCH DAY >30min KRIS PERALTA MD Jan 21, 2025 10:39
[2025-01-21 11:14] VITALS: TEMP 36.7
[2025-01-21 12:52] VITALS: BP 113/64; PULSE 69; RESP 17; TEMP 98.5; O2SAT 98
== END 2025-01-21 14:25 | disposition home or self-care (01) | DRG 463 ==
LOC: ER 17:04 → EEVIPCON 17:04 → OVERFLOW 21:43 → WEST WING 23:50
PROVIDERS: ADMIT Internal Medicine; ATTEND Internal Medicine
DX: N30.00 Acute cystitis without hematuria (principal); D25.9 Leiomyoma of uterus, unspecified; J45.909 Unspecified asthma, uncomplicated; D50.9 Iron deficiency anemia, unspecified; E66.01 Morbid (severe) obesity due to excess calories; K80.20 Calculus of gallbladder without cholecystitis without obstruction; G89.29 Other chronic pain; N20.0 Calculus of kidney; Z88.2 Allergy status to sulfonamides; Z79.2 Long term (current) use of antibiotics; Z79.899 Other long term (current) drug therapy; Z68.36 Body mass index [BMI] 36.0-36.9, adult
CPT/HCPCS: 36415; 71045; 72131; 74176; 76775; 76856; 80048; 80053; 81001; 82728; 83540; 83550; 83605; 83690; 85025; 85610; 85730; 87086; 87426; 87804; 93970; 96361; 96374; 96375; G0378; J1756; J1885; J2405; J2470; J3490